=== PATIENT | male | born 1980 | race Caucasian/White ===

== ENCOUNTER → 2016-09-24 | Outpatient (CLI) | payer MEDICARE, OTHER ==
[2016-09-24 07:44] LABS: Blood Urea Nitrogen 12 mg/dL (9-20); Non-African American GFR(MDRD) >60 (>60 ml/min/1.73 sqM)
--- NOTE | 2016-09-24 16:08 | MR ---
EXAMINATION TYPE: MR lumbar spine wo/w con DATE OF EXAM: 09/24/2016 8:55 AM COMPARISON: NONE HISTORY: 36-year-old male spondylosis w/myelopathy lsp Technique: Multiplanar, multisequence images of the lumbar spine were obtained before and after admin istration of 20 mL intravenous MultiHance gadolinium contrast. FINDINGS: Vertebral body heights are preserved and alignment is maintained. Scattered small Schmorl's nodes in the upper and mid lumbar spine. No suspicious bone marrow replacement. Conus medullaris is normal. Very early degenerative changes within the intervertebral disks upper to mid lumbar spine with very m inimal desiccation and disc height loss particularly at T12-L3 levels. Minimal disc bulging L1-L2 and L2-L3. At T12-L1, no spinal canal or neuroforaminal stenosis. At L1-L2, minimal disc bulge without canal or foraminal stenosis. L2-L3, minimal disc bulge without canal or foraminal stenosis. At L3-L4, no spinal canal or foraminal stenosis. At L4-L5, the spinal canal or neuroforaminal stenosis. At L5-S1, no spinal canal or neuroforaminal stenosis. No abnormal enhancement within the spinal canal. No prevertebral or paravertebral soft tissue abnormality. IMPRESSION: 1. Very early degenerative changes of the intervertebral discs especially in the upper to mid lumbar spine. 2. Scattered small chronic endplate Schmorl's nodes. 3. No significant spinal canal or neuroforaminal stenosis.
== END | disposition home or self-care (01) ==
LOC: RADMRIMAIN 07:14
PROVIDERS: ATTEND Family Medicine
DX: M47.816 Spondylosis without myelopathy or radiculopathy, lumbar region (principal); M51.46 Schmorl's nodes, lumbar region; M47.16 Other spondylosis with myelopathy, lumbar region
CPT/HCPCS: 82565; 84520; 72158; 36415; A9577

== ENCOUNTER → 2016-12-25 | Outpatient (CLI) | payer MEDICARE, OTHER ==
--- NOTE | 2016-12-25 20:56 | MR ---
EXAMINATION TYPE: MR shoulder RT wo con DATE OF EXAM: 12/25/2016 COMPARISON: None. HISTORY: Rt shoulder pain x 2 months, no trauma; xrays on pacs. Rotator cuff impingement per order. TECHNIQUE: Multiplanar, multisequence imaging of the right shoulder is performed without contrast. FINDINGS: Rotator Cuff: There is increased signal in the supraspinatus and infraspinatus tendons below level of the acromion. No suspicious tear is present. Rotator cuff muscle bulk is preserved. Subscapularis te ndon appears completely torn with increased signal and thickening proximally identified as some retra ction is felt present. Acromioclavicular Joint: Mild capsular hypertrophy is seen. Inferior fat plane is maintained. Distal acromion morphology is unremarkable. Glenohumeral Joint: There is moderate glenohumeral joint effusion. Labrum: The labrum appears grossly intact given limitation of non-arthrogram study. Biceps Tendon: The long head of biceps is in normal location within bicipital groove. Bone marrow signal: There is serpiginous low T1 with adjacent T2 hyperintense signal consistent with avascular necrosis involving the superior medial humeral head. Inferior to this there is additional a manolo of linear T1 signal seen on parasagittal image 15 and paracoronal image 17 suspicious for nondisp laced linear fracture. There is marked heterogeneous T2 signal consistent with significant bone marro w edema or osseous contusion injury involving entire humeral head extending through the proximal meta physis. Other: No additional significant abnormality is appreciated. IMPRESSION: 1. Osteonecrosis involving superior medial humeral head. 2. There appears also to be nondisplaced linear fracture through the humeral head with marked surroun ding osseous contusion or bone marrow edema, clinical correlation for recent trauma advised. 3. Subscapularis tendon appears discontinuous, full-thickness retracted tear is suspected. No biceps tendon dislocation noted. 4. Moderate glenohumeral joint effusion. Orthopedic referral advised.
== END | disposition home or self-care (01) ==
LOC: RADMRIMAIN 15:01
PROVIDERS: ATTEND Family Medicine
DX: S42.301A Unspecified fracture of shaft of humerus, right arm, initial encounter for closed fracture (principal); S46.811A Strain of other muscles, fascia and tendons at shoulder and upper arm level, right arm, initial encounter; M25.411 Effusion, right shoulder; M87.811 Other osteonecrosis, right shoulder

== ENCOUNTER → 2017-11-10 | Outpatient (CLI) | payer MEDICARE, OTHER ==
[2017-11-10 15:55] LABS: HCT 45.3 % (39.0-53.0); HGB 14.7 gm/dL (13.0-17.5); MCH 29.1 pg (25.0-35.0); MCHC 32.5 g/dL (31.0-37.0); MCV 89.4 fL (80.0-100.0); Platelet Count 209 k/uL (150-450); RBC 5.07 m/uL (4.30-5.90); RDW 13.4 % (11.5-15.5); WBC 8.6 k/uL (3.8-10.6)
[2017-11-10 15:59] LABS: Partial Thromboplastin Time 23.2 sec (22.0-30.0); Prothrombin Time 9.6 sec (9.0-12.0)
[2017-11-10 16:03] LABS: ALT 92 U/L (21-72); AST 60 U/L (17-59); Albumin 4.7 g/dL (3.5-5.0); Alkaline Phosphatase 82 U/L (38-126); Anion Gap 15 mmol/L; Blood Urea Nitrogen 13 mg/dL (9-20); Calcium 10.5 mg/dL (8.4-10.2); Carbon Dioxide 26 mmol/L (22-30); Chloride 103 mmol/L (98-107); Glucose 117 mg/dL (74-99); Potassium 4.6 mmol/L (3.5-5.1); Sodium 144 mmol/L (137-145); Total Bilirubin 0.4 mg/dL (0.2-1.3); Total Protein 7.7 g/dL (6.3-8.2)
== END | disposition home or self-care (01) ==
LOC: LABPAT 11-03 09:49
PROVIDERS: ATTEND Orthopaedic Surgery
DX: Z01.812 Encounter for preprocedural laboratory examination (principal)
CPT/HCPCS: 80053; 85027; 85610; 85730; 86850; 86900; 86901; 87070; 93005

== ENCOUNTER → 2017-11-14 | Outpatient (CLI) | payer MEDICARE, OTHER ==
[2017-11-14 16:01] LABS: Appearance,Urine Clear (Clear); Bacteria,Urine Rare /hpf; Bilirubin,Urine Negative (Negative); Blood,Urine Trace (Negative); Color,Urine Yellow; Glucose,Urine (UA) Trace (Negative); Ketones,Urine Negative (Negative); Leukocyte Esterase,Urine Negative (Negative); Mucus,Urine Rare /hpf; Nitrite,Urine Negative (Negative); PH, Urine 5.5 (5.0-8.0); Protein,Urine Negative (Negative); RBC,Urine 2 /hpf (0-5); Specific Gravity,Urine 1.027 (1.001-1.035); Squamous Epithelial Cell,Urine <1 /hpf (0-4); Urobilinogen,Urine <2.0 mg/dL (<2.0); WBC,Urine 1 /hpf (0-5)
== END | disposition home or self-care (01) ==
LOC: LABPAT 15:43
PROVIDERS: ATTEND Orthopaedic Surgery
DX: Z01.812 Encounter for preprocedural laboratory examination (principal)
CPT/HCPCS: 81001

== ENCOUNTER 2017-11-18 05:47 | Inpatient (IN) | payer MEDICARE, OTHER ==
[~2017-11-18 05:47] MED LIST: ACETAMINOPHEN TAB 500 MG TAB PO ONE; DEXAMETHASONE SOD PHOSPHATE 10 MG/ML 1 ML VIAL IV ONE; LACTATED RINGERS 1,000 ML IV SCH; MELOXICAM 7.5 MG TAB PO ONE; MIDAZOLAM 2 MG/2 ML VIAL IV PRN; ONDANSETRON ODT 4 MG TAB PO ONE; SCOPOLAMINE 1.5MG/72HR PATCH TRANSDERM ONE; TRANEXAMIC ACID 1,000 MG in SODIUM CHLORIDE 0.9% 50 ML IVPB ONE; ceFAZolin IN SWFI 2 GM/20 ML SYRINGE IVP ONE; fentaNYL (PF) 50 MCG/ML 2 ML AMP IV PRN
[2017-11-18 06:16] VITALS: RESP 16
[2017-11-18] MEDS ORDERED: LIDOCAINE 1% 20 ML VIAL (10MG/ML) FOR IV START INTRADERMA ONE (06:31)
[2017-11-18] MEDS ORDERED: MAGNESIUM HYDROXIDE 2,400 MG/10 ML CUP PO PRN (06:55)
[2017-11-18] MEDS ORDERED: ONDANSETRON 4 MG/2 ML VIAL IVP PRN (06:55)
[2017-11-18] MEDS ORDERED: DIAZEPAM 5 MG TAB PO PRN (06:55)
[2017-11-18] MEDS ORDERED: MORPHINE SULFATE 4 MG/ML SYRINGE IVP PRN ×3 (06:55)
[2017-11-18] MEDS ORDERED: hydrOXYzine PAMOATE 25 MG CAP PO PRN (06:55)
[2017-11-18] MEDS ORDERED: NALOXONE 0.4 MG/ML 1 ML VIAL IV PRN (06:55)
[2017-11-18] MEDS ORDERED: HYDROcodone/APAP 5-325MG 1 EACH TAB PO PRN ×2 (06:55)
[2017-11-18] MEDS ORDERED: SODIUM CHLORIDE 0.9% IRRIG 1,000 ML BTL IRRIGATION ONE (07:00)
[2017-11-18] MEDS ORDERED: MIDAZOLAM 2 MG/2 ML VIAL ONE (07:00)
[2017-11-18] MEDS ORDERED: PROPOFOL 10 MG/ML 20 ML VIAL IV ONE (07:00)
[2017-11-18] MEDS ORDERED: fentaNYL (PF) 50 MCG/ML 2 ML AMP ONE (07:00)
[2017-11-18] MEDS ORDERED: HEPARIN SODIUM,PORCINE 10,000 UNIT/ML 1 ML VIAL ONE (07:00)
[2017-11-18] MEDS ORDERED: SODIUM CHLORIDE 0.9% 100 ML BAG ONE (07:00)
[2017-11-18] MEDS ORDERED: TRANEXAMIC ACID 1,000 MG/10 ML VIAL ONE (07:00)
[2017-11-18] MEDS: ROPIVACAINE 246.25 MG, EPINEPHrine 0.5 MG, KETOROLAC 30 MG, cloNIDine HCL/PF 80 MCG, WA... MISCELLANE ONE ×10 (07:36→08:19)
[2017-11-18] MEDS ORDERED: ceFAZolin 3,000 MG in SODIUM CHLORIDE 0.9% IRRIGATIO 3,000 ML IRRIGATION ONE (07:37)
--- NOTE | 2017-11-18 08:45 | P.OP ---
Date of Procedure: 11/18/17 Preoperative Diagnosis: Severe osteoarthritis left hip Postoperative Diagnosis: Severe osteoarthritis left hip Procedure(s) Performed: Left total hip arthroplasty with a direct anterior approach Implants: Calderon and nephew Polarstem size 2 standard Calderon [employer] Nephew R3, 3 hole acetabular shell, 52 mm Claderon & Nephew reflection 6.5 mm cancellus screw, 20 mm 2 Calderon [employer] Nephew R3, XLPE 20 acetabular liner Calderon [employer] Nephew Oxinium femoral head 36 m, +4 All components were press-fit. The articulation is Oxinium on polyethylene. Anesthesia: spinal Surgeon: Al Parekh Grounds Caretaker #1: Nancy Zavala Estimated Blood Loss (ml): 250 (131 mL returned with Cell Saver) Pathology: other (Femoral head) Condition: stable Disposition: PACU Indications for Procedure: After failure of conservative treatment we discussed the surgical and nonsurgical treatment options at length. Patient wishes to proceed with a total hip arthroplasty with a direct anterior approach. Complications specific to this procedure were discussed at length, including but not limited to infection, leg length discrepancy, dislocation, and nerve injury. Patient is aware of all these complications and informed consent was obtained Operative Findings: The operative findings are consistent with severe osteoarthritis of the left hip Description of Procedure: Patient was seen and evaluated in the preoperative area, consent was reviewed, and the surgical site was marked with a skin marker. Patient was then brought to the operating room and given prophylactic antibiotics intravenously. 1 g of Tranexamic acid was also given. A spinal anesthetic was administered by the anesthesia department. The patient was then placed on the Durand table with the bony prominences well-padded. The hip area was then prepped and draped in usual sterile fashion. A universal timeout was then performed, which confirmed the patient's name, surgical site, ALLERGIES, and procedure being performed. Next the incision site was located at 1 cm distal and 1 cm lateral to the anterior superior iliac spine. The skin and subcutaneous tissues were sharply incised. Incision was carefully dissected down to the fascia overlying the tensor fascia pierce muscle. This fascia was then incised in line with the incision. Next, using blunt finger dissection, the tensor fascia pierce muscle was dissected off its investing fascia. The muscle was then carefully retracted laterally with a cobra retractor over the lateral neck of the femur. Next, the circumflex vessels were identified and cauterized using the AquaMantis device. The anterior hip capsule was then exposed. The capsule was then opened and an inverted T fashion. Cobra retractors were then placed intracapsularly. The proximal femur was then visualized. The femoral neck was then osteotomized appropriate level above the lesser trochanter. Small amount of traction was placed with the Durand table. A small wedge of bone was then removed from the remaining femoral head. Next, using a corkscrew femoral head was easily removed from the acetabulum. On gross visual inspection, the femoral head had complete loss of articular cartilage in multiple periarticular osteophytes. Attention was then turned to the acetabulum. the acetabulum was exposed and any remaining labrum was excised. Sequential reaming of the acetabulum was performed using fluoroscopic guidance. When the appropriate size was reached, a trial was then placed. The position and fit of the trial was checked with fluoroscopy. The trial was then removed. Then, using fluoroscopic guidance, the final implant was impacted at 20 of anteversion and 40 of abduction, and fully seated in the acetabulum. 2 screws were then placed in the acetabulum. Again fluoroscopy was used to check position of the screws. Next, the liner was then impacted, with a 20 elevated liner located in the anterior superior quadrant. Component locking was confirmed. Attention was then directed to the femur. With the aid of the Durand table, the femur was externally rotated to approximately 130, extended, and abducted under the opposite leg. A side hook was then placed under the proximal femur, and the side hook elevator was used to elevate the proximal femur. Retractors were then placed. A capsular release was performed, as well as a release of the conjoined tendon, which afforded excellent visualization of the proximal femur. Next, a box osteotome was used to lateralize the proximal femur. A baseball hand sewer was then used to locate the femoral canal. Sequential broaching was then performed with appropriate size which afforded excellent fixation in the proximal femur. A trial was then placed with appropriate head and neck, and the hip was gently reduced with the aid of the Durand table. Fluoroscopy was then used to check position of the components, as well as to ensure equal leg lengths. The hip was then gently dislocated and the trials were then removed. Final implants were then impacted and the hip was again reduced. Final fluoroscopic x-rays confirmed that the components were in anatomic position, as well as equal leg lengths. The hip was also taken through range of motion, and found to be stable. The hip was then copiously irrigated with antibiotic solution with pulsatile lavage. The hip was then irrigated with Irrisept solution. The soft tissues were then injected with a ropivacaine solution, which consisted of 246.25 mg of ropivacaine, 0.5 mg of epinephrine, 30 mg of Toradol, 80 g of clonidine, and 48.45 mL of sterile water, for a total of 100 mL of fluid injected. A second dose of 1 g of Tranexamic acid was also given. the fascia was then closed with 2-0 strata fix suture. The subcutaneous tissue was closed with 3-0 Vicryl. The subcuticular tissue was closed with 3-0 strata fix suture. The skin was then closed with Dermabond glue and a sterile silver dressing. The patient was then transferred to the recovery room in stable condition. The clinical education assistant CHIOMA Lindsey was required due to the complexity of surgery, and the need for skilled cardiovascular surgical tech for positioning, draping, exposure, retraction, and closure of the wound.
[2017-11-18] MEDS ORDERED: SODIUM CHLORIDE 0.9% 1,000 ML IV ONE (09:06)
--- NOTE | 2017-11-18 09:32 | XR ---
EXAMINATION TYPE: XR Hip Limited LT DATE OF EXAM: 11/18/2017 COMPARISON: NONE HISTORY: 37-year-old male status post hip surgery, assess surgical alignment TECHNIQUE: AP portable view FINDINGS: Image shows placement of left hip total arthroplasty. Both acetabular cup and femoral short stemmed c omponents of the prosthesis appear well seated without periprosthetic fracture. Alignment grossly ghassan tomic. Soft tissue air relating to recent operation. IMPRESSION: Uncomplicated postoperative appearance left total hip arthroplasty.
--- NOTE | 2017-11-18 10:19 | FL ---
EXAMINATION TYPE: FL guidance operating room, XR Hip Limited LT DATE OF EXAM: 11/18/2017 COMPARISON: NONE HISTORY: 37 year-old male left hip arthroplasty FINDINGS: 2 intraoperative fluoroscopic views during left hip replacement. FLUOROSCOPY Fluoroscopy time of 51 seconds was used during anterior left thoracoplasty. 2 image/s document/s the procedure. IMPRESSION: Intraoperative fluoroscopy during left hip total arthroplasty as above.
[2017-11-18] MEDS: SODIUM CHLORIDE 0.9% 1,000 ML IV SCH ×2 (10:33→21:09)
[2017-11-18] MEDS: ASPIRIN 325 MG TAB PO SCH ×2 (10:39→21:08)
[2017-11-18] MEDS: DIAZEPAM 5 MG TAB PO PRN ×2 (10:52→21:08)
[2017-11-18 11:10] VITALS: BMI 36.5
[2017-11-18] MEDS ORDERED: PRAZOSIN 1 MG CAP PO SCH ×2 (12:00→14:34)
[2017-11-18] MEDS ORDERED: FOLIC ACID 1 MG TAB PO SCH (12:00)
[2017-11-18] MEDS ORDERED: NON-FORMULARY DRUG (Dextroamphetamine/Amphetamine [Adderall] 30 MG) PO SCH (12:00)
[2017-11-18] MEDS: ARIPiprazole 10 MG TAB PO SCH (14:31)
[2017-11-18] MEDS: NIACIN TR 250 MG CAPSULE.ER PO SCH (14:32)
[2017-11-18] MEDS: SERTRALINE 100 MG TAB PO SCH (14:32)
[2017-11-18] MEDS ORDERED: KETOROLAC 60 MG/2 ML VIAL IM STA (14:50)
[2017-11-18] MEDS: oxyCODONE-APAP 10-325MG 1 EACH TAB PO PRN ×2 (16:06→21:07)
[2017-11-18] MEDS: ceFAZolin IN SWFI 2 GM/20 ML SYRINGE IVP SCH ×2 (16:13→23:47)
[2017-11-18] MEDS: KETOROLAC 30 MG/ML 1 ML VIAL IVP SCH ×2 (18:06→23:45)
[2017-11-18] MEDS ORDERED: SENNOSIDES-DOCUSATE SODIUM 1 EACH TAB PO SCH (21:00)
[2017-11-18] MEDS: FAMOTIDINE 20 MG TAB PO SCH (21:24)
--- NOTE | 2017-11-18 22:57 | HP ---
HISTORY AND PHYSICAL ADDENDUM: DATE OF SERVICE: 11/18/2017 FAMILY HISTORY: Reviewed, noncontributory to presentation. SOCIAL HISTORY: The patient is on disability, smokes half a pack a day for 20 years. Alcohol rarely. Denies use of any other recreational drugs. MMODL / IJN: [id number] /
[2017-11-19] MEDS: oxyCODONE-APAP 10-325MG 1 EACH TAB PO PRN ×2 (02:11→07:11)
[2017-11-19] MEDS: KETOROLAC 30 MG/ML 1 ML VIAL IVP SCH (05:10)
[2017-11-19] MEDS: NICOTINE 14MG/24HR PATCH TRANSDERM SCH ×2 (05:11→08:45)
[2017-11-19 07:32] LABS: Basophils # (A) 0.1 k/uL (0-0.2); Basophils % (A) 1 %; Eosinophils # (A) 0.1 k/uL (0-0.7); Eosinophils % (A) 1 %; HCT 35.5 % (39.0-53.0); Lymphocytes # (A) 3.4 k/uL (1.0-4.8); Lymphocytes % (A) 33 %; MCH 29.3 pg (25.0-35.0); MCHC 32.8 g/dL (31.0-37.0); MCV 89.4 fL (80.0-100.0); Mean Platelet Volume 7.3; Monocytes # (A) 1.1 k/uL (0-1.0); Monocytes % (A) 11 %; Neutrophils # (A) 5.4 k/uL (1.3-7.7); Neutrophils % (A) 52 %; Platelet Count 193 k/uL (150-450); RBC 3.97 m/uL (4.30-5.90); WBC 10.3 k/uL (3.8-10.6)
[2017-11-19 07:38] LABS: HGB 11.6 gm/dL (13.0-17.5)
--- NOTE | 2017-11-19 08:10 | P.DS ---
Providers Date of admission: 11/18/17 05:47 Expected date of discharge: 11/19/17 Attending physician: Al Parekh Consults: 11/18/17 06:55 Consult Physician Routine Consulting Provider: Wei Nielsen Consult Reason/Comments: medical management Do you want consulting provider notified?: Yes 11/18/17 10:01 Consult Physician Routine Consulting Provider: Kyler Alvarado Consult Reason/Comments: Medical Management Do you want consulting provider notified?: Yes Primary care physician: Wei Nielsen - Discharge Diagnosis(es) (1) Status post total hip replacement, left Current Visit: Yes Status: Acute (2) Avascular necrosis of bone of left hip Current Visit: Yes Status: Acute Hospital Course: This is a 37-year-old male with known history of degenerative arthritis of the left hip. The patient presents for evaluation. After discussion and consideration patient elects to proceed with total hip arthroplasty. The patient is seen preoperatively by his primary care physician and cleared for surgery. Patient is admitted to [facility] on 11/18/2017 for total hip arthroplasty. The procedures performed without complication or sequelae. The patient is doing well postoperatively. Labs and vital signs are stable on day of discharge. On day of discharge patient's hip incision is healing well. There is minimal erythema. There is no drainage noted at this time. There is minimal soft tissue swelling to the hip and thigh. Patient has full foot and ankle motion without difficulty or pain. Neurovascular status to the left lower extremity is intact. Patient is discharged to home in good condition. Pertinent Studies: Laboratory Tests 11/19/17 07:01 WBC 10.3 RBC 3.97 L Hgb 11.6 L D Hct 35.5 L Monocytes # 1.1 H Patient Condition at Discharge: Stable Plan - Discharge Summary Discharge Rx Participant: No New Discharge Prescriptions: New Aspirin 325 mg PO BID #60 tab Sennosides [Senokot] 1 tab PO BID #60 tablet No Action ARIPiprazole [Abilify] 10 mg PO QAM Cholecalciferol (Vitamin D3) [Vitamin D3] 2,000 unit PO DAILY Dextroamphetamine/Amphetamine [Adderall] 30 mg PO QAM Folic Acid 1 mg PO DAILY Loratadine 10 mg PO DAILY Niacin 100 mg PO DAILY [place]-3 Fatty Acids/Fish Oil [Fish Oil 1,000 mg Softgel] 1 cap PO DAILY oxyCODONE-APAP 10-325MG [Percocet 10-325 mg] 1 tab PO Q6H PRN PRN Reason: Pain Prazosin [Minipress] 2 mg PO QAM Ranitidine HCl [Zantac] 150 mg PO BID Sertraline [Zoloft] 200 mg PO QAM SUMAtriptan SUCCINATE [Imitrex] 25 mg PO DAILY PRN PRN Reason: MIGRAINES Zolpidem [Ambien] 10 mg PO HS PRN PRN Reason: Insomnia Pseudoephedrine 12Hr [Sudafed 12 Hour] 120 mg PO DAILY Lisinopril [Zestril] 10 mg PO QAM Discharge Medication List ARIPiprazole [Abilify] 10 mg PO QAM 11/11/17 [History] Cholecalciferol (Vitamin D3) [Vitamin D3] 2,000 unit PO DAILY 11/11/17 [History] Dextroamphetamine/Amphetamine [Adderall] 30 mg PO QAM 11/11/17 [History] Folic Acid 1 mg PO DAILY 11/11/17 [History] Lisinopril [Zestril] 10 mg PO QAM 11/11/17 [History] Loratadine 10 mg PO DAILY 11/11/17 [History] Niacin 100 mg PO DAILY 11/11/17 [History] [place]-3 Fatty Acids/Fish Oil [Fish Oil 1,000 mg Softgel] 1 cap PO DAILY [History] Prazosin [Minipress] 2 mg PO QAM 11/11/17 [History] Pseudoephedrine 12Hr [Sudafed 12 Hour] 120 mg PO DAILY 11/11/17 [History] Ranitidine HCl [Zantac] 150 mg PO BID 11/11/17 [History] SUMAtriptan SUCCINATE [Imitrex] 25 mg PO DAILY PRN 11/11/17 [History] Sertraline [Zoloft] 200 mg PO QAM 11/11/17 [History] Zolpidem [Ambien] 10 mg PO HS PRN 11/11/17 [History] oxyCODONE-APAP 10-325MG [Percocet 10-325 mg] 1 tab PO Q6H PRN 11/11/17 [History] Aspirin 325 mg PO BID #60 tab 11/18/17 [Rx] Sennosides [Senokot] 1 tab PO BID #60 tablet 11/18/17 [Rx] Follow up Appointment(s)/Referral(s): [facility], [NON-STAFF] - Al Parekh DO [Doctor of Osteopathic Medicine] - 2 Weeks Patient Instructions/Handouts: Anterior Hip Replacement (DC) Activity/Diet/Wound Care/Special Instructions: Walker- [facility] -[phone]- will deliver to bedside prior to discharge Weightbearing as tolerated with walker Leave dressing intact. Dressing may be removed by home care nurse in 10 days. May shower with dressing on. Follow-up with [facility] in 2 weeks, please call with any questions or concerns [phone] Discharge Disposition: HOME WITH HOME HEALTH SERVICES
[2017-11-19 08:27] VITALS: BP 159/95; PULSE 74; TEMP 97.8
[2017-11-19] MEDS: NIACIN TR 250 MG CAPSULE.ER PO SCH (08:44)
[2017-11-19] MEDS: FAMOTIDINE 20 MG TAB PO SCH (08:44)
[2017-11-19] MEDS: ASPIRIN 325 MG TAB PO SCH (08:44)
[2017-11-19] MEDS: ARIPiprazole 10 MG TAB PO SCH (08:44)
[2017-11-19] MEDS: SERTRALINE 100 MG TAB PO SCH (08:45)
[2017-11-19] MEDS ORDERED: LISINOPRIL 10 MG TAB PO SCH (09:00)
[2017-11-19] MEDS ORDERED: LORATADINE 10 MG TAB PO SCH (09:00)
[2017-11-19] MEDS ORDERED: MELOXICAM 7.5 MG TAB PO SCH (09:00)
[2017-11-19] MEDS ORDERED: PSEUDOEPHEDRINE 12HR 120 MG TABLET.ER PO SCH (09:00)
== END 2017-11-19 09:45 | disposition home health service (06) | DRG 470 ==
LOC: 2ORMAIN 05:47 → 3SUR 08:50
PROVIDERS: ADMIT Orthopaedic Surgery; ATTEND Orthopaedic Surgery
PROC: 30233N0 Transfusion of Autologous Red Blood Cells into Peripheral Vein, Percutaneous Approach (ICD-10-PCS; 2017-11-18)
PROC: 0SRB06A Replacement of Left Hip Joint with Oxidized Zirconium on Polyethylene Synthetic Substitute, Uncemented, Open Approach (ICD-10-PCS; principal; 2017-11-18 07:00)
DX: M16.12 Unilateral primary osteoarthritis, left hip (principal); M87.052 Idiopathic aseptic necrosis of left femur; M47.10 Other spondylosis with myelopathy, site unspecified; M25.752 Osteophyte, left hip; F17.210 Nicotine dependence, cigarettes, uncomplicated; I10 Essential (primary) hypertension; E78.5 Hyperlipidemia, unspecified; H91.90 Unspecified hearing loss, unspecified ear; K76.9 Liver disease, unspecified; F32.9 Major depressive disorder, single episode, unspecified; J44.9 Chronic obstructive pulmonary disease, unspecified; G47.00 Insomnia, unspecified; E78.00 Pure hypercholesterolemia, unspecified; K21.9 Gastro-esophageal reflux disease without esophagitis; M06.9 Rheumatoid arthritis, unspecified; F43.10 Post-traumatic stress disorder, unspecified; Z88.6 Allergy status to analgesic agent; Z83.3 Family history of diabetes mellitus; Z79.899 Other long term (current) drug therapy; Z82.49 Family history of ischemic heart disease and other diseases of the circulatory system; Z79.891 Long term (current) use of opiate analgesic; Z87.01 Personal history of pneumonia (recurrent); Z86.69 Personal history of other diseases of the nervous system and sense organs
CPT/HCPCS: 73501; 85025; 86850; 86891; 86900; 86901; 88305; 88311

== ENCOUNTER 2018-08-22 08:34 | Inpatient (IN) | payer MEDICARE, OTHER ==
[2018-08-22] MEDS ORDERED: SODIUM CHLORIDE 0.9% 1,000 ML IV STA ×2 (08:37)
[2018-08-22] MEDS ORDERED: ASPIRIN 81 MG PO STA (08:37)
--- NOTE | 2018-08-22 08:44 | ED ---
General Adult HPI - General Stated complaint: WEAKNESS Time Seen by Provider: 08/22/18 08:34 Source: RN notes reviewed - History of Present Illness Initial comments: This is a 38-year-old male who presents emergency Department with a past medical history significant for hypertension. Patient states the ambulance was called today because he was having chest pains or shortness of breath and is significant other noted that he was a little bit confused. She also noted that the last couple of days he was drinking a lot of Gatorade. Patient states she has not been nauseated or had any vomiting. Patient denies any recent fever chills per patient denies any cough. Patient denies any abdominal pain. Patient denies any recent diarrhea. Patient has no history of diabetes. EMS noted that his sugar was over 500. Patient denies headache patient denies numbness weakness. Patient denies lightheadedness dizziness or near syncopal episode. - Related Data Home Medications Medication Instructions Recorded Confirmed Cholecalciferol (Vitamin D3) 2,000 unit PO DAILY 11/11/17 08/22/18 [Vitamin D3] Dextroamphetamine/Amphetamine 30 mg PO QAM 11/11/17 11/18/17 [Adderall] Folic Acid 1 mg PO DAILY 11/11/17 08/22/18 Lisinopril [Zestril] 10 mg PO QAM 11/11/17 08/22/18 Loratadine 10 mg PO DAILY 11/11/17 11/18/17 [place]-3 Fatty Acids/Fish Oil [Fish 1 cap PO DAILY 11/11/17 11/18/17 Oil 1,000 mg Softgel] Pseudoephedrine 12Hr [Sudafed 12 120 mg PO DAILY 11/11/17 11/18/17 Hour] Ranitidine HCl [Zantac] 150 mg PO BID 11/11/17 11/18/17 SUMAtriptan SUCCINATE [Imitrex] 25 mg PO DAILY PRN 11/11/17 11/18/17 Sertraline [Zoloft] 200 mg PO QAM 11/11/17 08/22/18 Zolpidem [Ambien] 10 mg PO HS PRN 11/11/17 11/18/17 oxyCODONE-APAP 10-325MG [Percocet 1 tab PO Q6H PRN 11/11/17 11/18/17 10-325 mg] ARIPiprazole [Abilify] 10 mg PO DAILY 08/22/18 08/22/18 Niacin 1,000 mg PO HS 08/22/18 08/22/18 Prazosin HCl 4 mg PO HS 08/22/18 08/22/18 Previous Rx's Medication Instructions Recorded Aspirin 325 mg PO BID #60 tab 11/18/17 Sennosides [Senokot] 1 tab PO BID #60 tablet 11/18/17 Allergies Allergy/AdvReac Type Severity Reaction Status Date / Time morphine Allergy HEADACHE, Verified 08/22/18 09:23 AGITATION Review of Systems ROS Statement: Those systems with pertinent positive or pertinent negative responses have been documented in the HPI. ROS Other: All systems not noted in ROS Statement are negative. Past Medical History Past Medical History: GERD/Reflux, Hypertension, Osteoarthritis (OA), Rheumatoid Arthritis (RA), Sleep Apnea/CPAP/BIPAP Additional Past Medical History / Comment(s): AVASCULAR NECROSIS. MIGRAINES. ALLERGIES. DOES NOT USE CPAP. History of Any Multi-Drug Resistant Organisms: None Reported Past Surgical History: Back Surgery, Joint Replacement, Orthopedic Surgery Additional Past Surgical History / Comment(s): RIGHT ROTATOR CUFF REPAIR. TOTAL JOINT RIGHT SHOULDER @ [facility]. LEFT KNEE ARTHROSCOPY. SINUS. C6-7, ANTERIOR TOTAL LEFT HIP ARTHROPLASTY, Past Anesthesia/Blood Transfusion Reactions: No Reported Reaction Past Psychological History: ADD/ADHD, Anxiety, Depression, PTSD Smoking Status: Current every day smoker Past Alcohol Use History: Rare Additional Past Alcohol Use History / Comment(s): 1/2 PPD, SMOKED 20 YEARS. Past Drug Use History: None Reported - Past Family History Mother Family Medical History: No Reported History General Exam - General Exam Comments Initial Comments: GENERAL: Patient is well-developed and well-nourished. Patient is nontoxic and well- hydrated and is in mild distress. ENT: Neck is soft and supple. No significant lymphadenopathy is noted. Oropharynx is clear. Dry mucous membranes Neck has full range of motion without eliciting any pain. EYES: The sclera were anicteric and conjunctiva were pink and moist. Extraocular movements were intact and pupils were equal round and reactive to light. Eyelids were unremarkable. PULMONARY: Unlabored respirations. Good breath sounds bilaterally. No audible rales rhonchi or wheezing was noted. CARDIOVASCULAR: There is a regular rate and rhythm without any murmurs gallops or rubs. ABDOMEN: Soft and nontender with normal bowel sounds. SKIN: Skin is clear with no lesions or rashes and otherwise unremarkable. NEUROLOGIC: Patient is alert and oriented x3. Cranial nerves II through XII are grossly intact. Motor and sensory are also intact. Normal speech, volume and content. Symmetrical smile. MUSCULOSKELETAL: Normal extremities with adequate strength and full range of motion. No lower extremity swelling or edema. No calf tenderness. LYMPHATICS: No significant lymphadenopathy is noted PSYCHIATRIC: Normal psychiatric evaluation. Course Vital Signs 08/22/18 08:35 Temperature 97.0 F L Pulse Rate 117 H Respiratory 32 H Rate Blood Pressure 127/64 Medical Decision Making - Medical Decision Making EKG shows sinus tachycardia at 118 bpm OR interval 114 QRS is under QT interval 354 QTC is 496. Patient's EKG shows no ST segment elevation or depression or T wave abnormalities are noted when compared to an old EKG Chest x-ray shows no acute abnormality. Patient appears to have new-onset diabetes. Patient sugars over thousand patient's potassium 6.7 patient's sodium is 119. Patient's creatinine is elevated. Patient appears to be dehydrated. I spoke with Dr. Alvarado agreed to admit the patient admitted the patient wrote admitting orders. I put the patient DKA protocol I spoke with Dr. Samuels and he agreed to accept the patient. - Lab Data Result diagrams: 08/22/18 08:48 08/22/18 08:48 Lab Results 08/22/18 08/22/18 08/22/18 Range/Units 08:48 08:48 08:48 WBC 23.5 H (3.8-10.6) k/uL RBC 4.95 (4.30-5.90) m/uL Hgb 14.7 (13.0-17.5) gm/dL Hct 49.5 (39.0-53.0) % MCV 99.8 (80.0-100.0) fL MCH 29.7 (25.0-35.0) pg MCHC 29.8 L (31.0-37.0) g/dL RDW 13.3 (11.5-15.5) % Plt Count 285 (150-450) k/uL Neutrophils % (Manual) 77 % Band Neutrophils % 2 % Lymphocytes % (Manual) 13 % Monocytes % (Manual) 8 % Neutrophils # (Manual) 18.50 H (1.3-7.7) k/uL Lymphocytes # (Manual) 3.06 (1.0-4.8) k/uL Monocytes # (Manual) 1.88 H (0-1.0) k/uL Nucleated RBCs 0 (0-0) /100 WBC Manual Slide Review Performed Hypochromasia Marked Stomatocytes Present PT (9.0-12.0) sec INR (<1.2) APTT (22.0-30.0) sec Sample Site ABG pH (7.35-7.45) ABG pCO2 (35-45) mmHg ABG pO2 (83-108) mmHg ABG HCO3 (21-25) mmol/L ABG O2 Saturation (94-97) % ABG Base Excess mmol/L FiO2 % Sodium 119 L* (137-145) mmol/L Potassium 6.7 H* (3.5-5.1) mmol/L Chloride 81 L (98-107) mmol/L Carbon Dioxide <5 L* (22-30) mmol/L Anion Gap mmol/L BUN 36 H (9-20) mg/dL Creatinine 3.49 H (0.66-1.25) mg/dL Est GFR (CKD-EPI)AfAm 24 (>60 ml/min/1.73 sqM) Est GFR (CKD-EPI)NonAf 21 (>60 ml/min/1.73 sqM) Glucose 1223 H* (74-99) mg/dL POC Glucose (mg/dL) (75-99) mg/dL POC Glu Advertising Account Manager ID Calcium 8.5 (8.4-10.2) mg/dL Magnesium 2.2 (1.6-2.3) mg/dL Total Bilirubin 0.9 (0.2-1.3) mg/dL AST 55 (17-59) U/L ALT 61 (21-72) U/L Alkaline Phosphatase 95 (38-126) U/L Total Creatine Kinase 79 (55-170) U/L CK-MB (CK-2) 1.8 (0.0-2.4) ng/mL CK-MB (CK-2) Rel Index 2.3 Troponin I 0.013 (0.000-0.034) ng/mL Total Protein 6.8 (6.3-8.2) g/dL Albumin 3.9 (3.5-5.0) g/dL Acetone, Qual Positive (Negative) 08/22/18 08/22/18 08/22/18 Range/Units 08:48 09:12 11:26 WBC (3.8-10.6) k/uL RBC (4.30-5.90) m/uL Hgb (13.0-17.5) gm/dL Hct (39.0-53.0) % MCV (80.0-100.0) fL MCH (25.0-35.0) pg MCHC (31.0-37.0) g/dL RDW (11.5-15.5) % Plt Count (150-450) k/uL Neutrophils % (Manual) % Band Neutrophils % % Lymphocytes % (Manual) % Monocytes % (Manual) % Neutrophils # (Manual) (1.3-7.7) k/uL Lymphocytes # (Manual) (1.0-4.8) k/uL Monocytes # (Manual) (0-1.0) k/uL Nucleated RBCs (0-0) /100 WBC Manual Slide Review Hypochromasia Stomatocytes PT 9.9 (9.0-12.0) sec INR 0.9 (<1.2) APTT 26.8 (22.0-30.0) sec Sample Site r rad ABG pH 7.07 L* (7.35-7.45) ABG pCO2 <15 L* (35-45) mmHg ABG pO2 103 (83-108) mmHg ABG HCO3 3 L* (21-25) mmol/L ABG O2 Saturation 96.0 (94-97) % ABG Base Excess -26.7 mmol/L FiO2 28 % Sodium (137-145) mmol/L Potassium (3.5-5.1) mmol/L Chloride (98-107) mmol/L Carbon Dioxide (22-30) mmol/L Anion Gap mmol/L BUN (9-20) mg/dL Creatinine (0.66-1.25) mg/dL Est GFR (CKD-EPI)AfAm (>60 ml/min/1.73 sqM) Est GFR (CKD-EPI)NonAf (>60 ml/min/1.73 sqM) Glucose (74-99) mg/dL POC Glucose (mg/dL) >600 H (75-99) mg/dL POC Glu Advertising Account Manager ID Tanja Miranda Calcium (8.4-10.2) mg/dL Magnesium (1.6-2.3) mg/dL Total Bilirubin (0.2-1.3) mg/dL AST (17-59) U/L ALT (21-72) U/L Alkaline Phosphatase (38-126) U/L Total Creatine Kinase (55-170) U/L CK-MB (CK-2) (0.0-2.4) ng/mL CK-MB (CK-2) Rel Index Troponin I (0.000-0.034) ng/mL Total Protein (6.3-8.2) g/dL Albumin (3.5-5.0) g/dL Acetone, Qual (Negative) Critical Care Time Critical Care Time: Yes Total Critical Care Time: 35 Disposition Clinical Impression: DKA (diabetic ketoacidoses), Renal failure Disposition: ADMITTED IP TO THIS HOSP Referrals: Wei Nielsen MD [Primary Care Provider] - 1-2 days Time of Disposition: 11:32
[2018-08-22 09:38] LABS: ALT 61 U/L (21-72); AST 55 U/L (17-59); Albumin 3.9 g/dL (3.5-5.0); Alkaline Phosphatase 95 U/L (38-126); Blood Urea Nitrogen 36 mg/dL (9-20); Calcium 8.5 mg/dL (8.4-10.2); Chloride 81 mmol/L (98-107); Magnesium 2.2 mg/dL (1.6-2.3); Total Bilirubin 0.9 mg/dL (0.2-1.3); Total Protein 6.8 g/dL (6.3-8.2)
[2018-08-22 09:43] LABS: HCT 49.5 % (39.0-53.0); HGB 14.7 gm/dL (13.0-17.5); Hypochromasia Marked; MCH 29.7 pg (25.0-35.0); MCHC 29.8 g/dL (31.0-37.0); MCV 99.8 fL (80.0-100.0); Mean Platelet Volume 9.6; Platelet Count 285 k/uL (150-450); RBC 4.95 m/uL (4.30-5.90); RDW 13.3 % (11.5-15.5); WBC 23.5 k/uL (3.8-10.6)
[2018-08-22 09:43] LABS: ABG Base Excess -26.7 mmol/L; ABG PO2 103 mmHg (83-108)
[2018-08-22 09:44] LABS: ABG HCO3 3 mmol/L (21-25); ABG PCO2 <15 mmHg (35-45); ABG PH 7.07 (7.35-7.45)
--- NOTE | 2018-08-22 09:51 | XR ---
EXAMINATION TYPE: XR chest 2V DATE OF EXAM: 08/22/2018 COMPARISON: CT cervical spine 09/06/2013 HISTORY: Chest pain TECHNIQUE: Frontal and lateral views of the chest are obtained. FINDINGS: There is no focal air space opacity, pleural effusion, or pneumothorax seen. The cardiac silhouette size is within normal limits. Right partial shoulder arthroplasty is evident. There is rodrigo dence of prior cervical fusion. This hardware appears similar to prior study of 2013. IMPRESSION: No acute cardiopulmonary process.
[2018-08-22 09:57] LABS: Potassium 6.7 mmol/L (3.5-5.1); Sodium 119 mmol/L (137-145)
[2018-08-22 09:59] LABS: Glucose 1223 mg/dL (74-99)
[2018-08-22] MEDS ORDERED: SODIUM CHLORIDE 0.9% 1,000 ML IV ONE (09:59)
[2018-08-22 10:00] LABS: Carbon Dioxide <5 mmol/L (22-30)
[2018-08-22] MEDS ORDERED: INSULIN REGULAR 100 UNIT/ML VIAL IV ONE (10:00)
[2018-08-22 10:01] LABS: Creatine Kinase MB 1.8 ng/mL (0.0-2.4)
[2018-08-22 10:02] LABS: Troponin I 0.013 ng/mL (0.000-0.034)
[2018-08-22 10:10] LABS: INR 0.9 (<1.2); Partial Thromboplastin Time 26.8 sec (22.0-30.0); Prothrombin Time 9.9 sec (9.0-12.0)
[2018-08-22 10:13] LABS: Band Neutrophils % 2 %; Lymphocytes # (M) 3.06 k/uL (1.0-4.8); Monocytes # (M) 1.88 k/uL (0-1.0); Neutrophils % (M) 77 %; Nucleated Red Blood Cells 0 /100 WBC (0-0); Total Cells Counted 100
[2018-08-22 10:19] LABS: Stomatocytes Present
[2018-08-22] MEDS: INSULIN REGULAR 100 UNIT in SODIUM CHLORIDE 0.9% 100 ML IV SCH ×2 (10:57→18:41)
[2018-08-22 11:29] LABS: Glucose,Whole Blood >600 mg/dL (75-99)
[2018-08-22] MEDS ORDERED: INSULIN REGULAR 100 UNIT in SODIUM CHLORIDE 0.9% 100 ML IV SCH (11:45)
[2018-08-22] MEDS: SODIUM CHLORIDE 0.9% 1,000 ML IV SCH ×2 (11:50→17:05)
[2018-08-22 12:39] LABS: Glucose,Whole Blood >600 mg/dL (75-99)
[2018-08-22 13:09] LABS: Glucose,Whole Blood >600 mg/dL (75-99)
[2018-08-22 13:10] LABS: Blood Urea Nitrogen 39 mg/dL (9-20); Chloride 93 mmol/L (98-107); Phosphorus 4.3 mg/dL (2.5-4.5); Sodium 127 mmol/L (137-145)
[2018-08-22 13:24] LABS: Glucose 1013 mg/dL (74-99)
[2018-08-22 13:25] LABS: Carbon Dioxide <5 mmol/L (22-30)
--- NOTE | 2018-08-22 13:59 | P.CNPUL ---
History of Present Illness Consult date: 08/22/18 Requesting physician: Kyler Alvarado Reason for consult: other (Critical care management) Chief complaint: Chest pain, shortness of breath, confusion. History of present illness: This is a 38-year-old gentleman who follows with Dr. Nielsen as his primary care physician. He has a history of hypertension, gastroesophageal reflux disease, osteoarthritis, avascular necrosis with previous left hip replacement, sleep apnea not on CPAP in the outpatient setting, migraines depression, ADHD, posttraumatic stress disorder. He also has history of chronic and ongoing tobacco dependence. EMS was called to his home this morning as he was complaining of chest pain, shortness of breath and confusion. The patient had stated he had been drinking a lot of Gatorade the last few days. In the emergency room he was found to be an acute diabetic ketoacidosis with a presenting blood glucose of 1223. Sodium 119, chloride 81, bicarb less than 5, calcium 6.7, acetone positive. Creatinine 3.49 Arterial blood gases on 28% FiO2 revealed a PaO2 of 103, pCO2 less than 15, pH 7.07. He was initiated on the DKA protocol. He was seen and evaluated in the emergency room. He is currently quite drowsy but does arouse to verbal stimuli. Moving all fours. Following simple commands. He is currently on an insulin drip at 0.12 units per kilogram per hour. 0.9 normal saline at 200 ML's per hour. He is status post 3 L of fluid resuscitation. He is currently maintaining good O2 saturations in the upper 90s on 2 L/m per nasal cannula. He's been afebrile. He is tachycardic and tachypneic. Most recent labs reveal a WBC 23.5. Hemoglobin 14.7. Neutrophils 18.5. Sodium 127. Potassium 5.0. Chloride 93. Bicarb remains less than 5. Creatinine 2.58. Blood glucose 1013. Unable to calculate an anion gap. Review of Systems ROS unobtainable: due to mental status Past Medical History Past Medical History: GERD/Reflux, Hypertension, Osteoarthritis (OA), Rheumatoid Arthritis (RA), Sleep Apnea/CPAP/BIPAP Additional Past Medical History / Comment(s): AVASCULAR NECROSIS. MIGRAINES. ALLERGIES. DOES NOT USE CPAP. History of Any Multi-Drug Resistant Organisms: None Reported Past Surgical History: Back Surgery, Joint Replacement, Orthopedic Surgery Additional Past Surgical History / Comment(s): RIGHT ROTATOR CUFF REPAIR. TOTAL JOINT RIGHT SHOULDER @ [facility]. LEFT KNEE ARTHROSCOPY. SINUS. C6-7, ANTERIOR TOTAL LEFT HIP ARTHROPLASTY, Past Anesthesia/Blood Transfusion Reactions: No Reported Reaction Past Psychological History: ADD/ADHD, Anxiety, Depression, PTSD Smoking Status: Current every day smoker Past Alcohol Use History: Rare Additional Past Alcohol Use History / Comment(s): 1/2 PPD, SMOKED 20 YEARS. Past Drug Use History: None Reported - Past Family History Mother Family Medical History: No Reported History Medications and Allergies Home Medications Medication Instructions Recorded Confirmed Type Cholecalciferol (Vitamin D3) 2,000 unit PO DAILY 11/11/17 08/22/18 History [Vitamin D3] Dextroamphetamine/Amphetamine 30 mg PO QAM 11/11/17 08/22/18 History [Adderall] Folic Acid 1 mg PO DAILY 11/11/17 08/22/18 History Lisinopril [Zestril] 10 mg PO QAM 11/11/17 08/22/18 History Loratadine 10 mg PO DAILY 11/11/17 11/18/17 History [place]-3 Fatty Acids/Fish Oil [Fish 1 cap PO DAILY 11/11/17 11/18/17 History Oil 1,000 mg Softgel] Ranitidine HCl [Zantac] 150 mg PO BID 11/11/17 11/18/17 History SUMAtriptan SUCCINATE [Imitrex] 25 mg PO DAILY PRN 11/11/17 11/18/17 History Sertraline [Zoloft] 200 mg PO QAM 11/11/17 08/22/18 History Zolpidem [Ambien] 10 mg PO HS PRN 11/11/17 11/18/17 History oxyCODONE-APAP 10-325MG [Percocet 1 tab PO Q6H PRN 11/11/17 08/22/18 History 10-325 mg] Aspirin 325 mg PO BID #60 tab 11/18/17 Rx Sennosides [Senokot] 1 tab PO BID #60 tablet 11/18/17 08/22/18 Rx ARIPiprazole [Abilify] 10 mg PO DAILY 08/22/18 08/22/18 History Niacin 1,000 mg PO HS 08/22/18 08/22/18 History Prazosin HCl 4 mg PO HS 08/22/18 08/22/18 History Topiramate [Topamax] 50 mg PO DAILY 08/22/18 08/22/18 History Allergies Allergy/AdvReac Type Severity Reaction Status Date / Time morphine Allergy HEADACHE, Verified 08/22/18 09:23 AGITATION Physical Exam Vitals: Vital Signs Temp Pulse Resp BP Pulse Ox 08/22/18 13:00 125 H 28 H 155/72 99 08/22/18 12:00 122 H 32 H 121/70 100 08/22/18 11:00 123 H 28 H 98/26 99 08/22/18 10:00 111 H 38 H 111/62 99 08/22/18 09:00 121 H 32 H 127/64 98 08/22/18 08:35 97.0 F L 117 H 32 H 127/64 Intake and Output 08/21/18 08/22/18 08/22/18 22:59 06:59 14:59 Intake Total 22.312 Balance 22.312 Intake: Intake, IV Titration 22.312 Amount Insulin Regular 100 unit 22.312 In Sodium Chloride 0.9% 100 ml @ 0.1 UNITS/KG/HR 10.1 mls/hr IV .Q10H [facility] Rx#:[id number] Other: Weight 100 kg GENERAL EXAM: Drowsy, arouses to verbal stimuli, following commands, moving all fours. HEAD: Normocephalic. EYES: Normal reaction of pupils, equal size. NOSE: Clear with pink turbinates. THROAT: No erythema or exudates. NECK: No masses, no JVD. CHEST: No chest wall deformity. LUNGS: Equal air entry with no crackles, wheeze, rhonchi or dullness. CVS: S1 and S2 normal with no audible murmur, regular rhythm. ABDOMEN: No hepatosplenomegaly, normal bowel sounds, no guarding or rigidity. SPINE: No scoliosis or deformity SKIN: No rashes CENTRAL NERVOUS SYSTEM: No focal deficits, tone is normal in all 4 extremities. EXTREMITIES: There is no peripheral edema. No clubbing, no cyanosis. Peripheral pulses are intact. Results - Laboratory Findings CBC and BMP: 08/22/18 08:48 08/22/18 12:17 ABG ABG pH 7.07 (7.35-7.45) L* 08/22/18 09:12 ABG pCO2 <15 mmHg (35-45) L* 08/22/18 09:12 ABG pO2 103 mmHg (83-108) 08/22/18 09:12 ABG O2 Saturation 96.0 % (94-97) 08/22/18 09:12 PT/INR, D-dimer PT 9.9 sec (9.0-12.0) 08/22/18 08:48 INR 0.9 (<1.2) 08/22/18 08:48 Abnormal lab findings: Abnormal Labs 08/22/18 08/22/18 08/22/18 08:48 08:48 09:12 WBC 23.5 H MCHC 29.8 L Neutrophils # (Manual) 18.50 H Monocytes # (Manual) 1.88 H ABG pH 7.07 L* ABG pCO2 <15 L* ABG HCO3 3 L* Sodium 119 L* Potassium 6.7 H* Chloride 81 L Carbon Dioxide <5 L* BUN 36 H Creatinine 3.49 H Glucose 1223 H* POC Glucose (mg/dL) 08/22/18 08/22/18 08/22/18 11:26 12:06 12:17 WBC MCHC Neutrophils # (Manual) Monocytes # (Manual) ABG pH ABG pCO2 ABG HCO3 Sodium 127 L Potassium Chloride 93 L Carbon Dioxide <5 L* BUN 39 H Creatinine 2.58 H Glucose 1013 H* POC Glucose (mg/dL) >600 H >600 H 08/22/18 12:59 WBC MCHC Neutrophils # (Manual) Monocytes # (Manual) ABG pH ABG pCO2 ABG HCO3 Sodium Potassium Chloride Carbon Dioxide BUN Creatinine Glucose POC Glucose (mg/dL) >600 H - Diagnostic Findings Chest x-ray: image reviewed (No acute cardiopulmonary process) Assessment and Plan Assessment: Impression: #1 Acute diabetic ketoacidosis in a patient who has not previously been diagnosed as diabetic. #2 Metabolic acidosis, suspect anion gap secondary to diabetic ketoacidosis. #3 hyperkalemia secondary to above. #4 Acute renal failure. Secondary to above #5 Hyponatremic hypochloremia and dairy to above. #6 Leukocytosis secondary to above. #7 Hypertension. #8 Attention deficit disorder. #9 History of depression/posttraumatic stress as ordered. #10 History of avascular necrosis with previous left hip surgery. #11 History of migraines. #12 history of obstructive sleep apnea not on CPAP the outpatient setting. #13 Chronic and ongoing tobacco dependence. Plan: The patient was seen and evaluated in the emergency room by Dr. Samuels. Chest x-ray and labs were reviewed. The patient will return be transferred to the intensive care unit. Continue labs per protocol. Continue diabetic ketoacidosis protocol. We'll continue to follow and make further recommendations based on his clinical status. I, the cosigning physician, performed a history & physical examination of the patient. Lungs sounds are clear. Maintaining good O2 saturations in the 90s on room air. I discussed the assessment and plan of care with my nurse practitioner, Poly Garcia. I attest to the above consultation as dictated by her. Time with Patient: Greater than 30
[2018-08-22 14:12] LABS: Glucose,Whole Blood >600 mg/dL (75-99)
[2018-08-22 15:16] LABS: Glucose,Whole Blood 568 mg/dL (75-99)
[2018-08-22] MEDS ORDERED: KETOROLAC 30 MG/ML 1 ML VIAL IVP STA (16:07)
[2018-08-22 16:46] LABS: Phosphorus 2.4 mg/dL (2.5-4.5); Potassium 4.3 mmol/L (3.5-5.1)
[2018-08-22 17:14] LABS: Glucose,Whole Blood 420 mg/dL (75-99)
[2018-08-22 17:14] LABS: Glucose,Whole Blood 465 mg/dL (75-99)
[2018-08-22 18:12] LABS: Glucose,Whole Blood 333 mg/dL (75-99)
[2018-08-22 19:13] LABS: Glucose,Whole Blood 327 mg/dL (75-99)
[2018-08-22] MEDS ORDERED: oxyCODONE-APAP 10-325MG 1 EACH TAB PO PRN (19:25)
[2018-08-22] MEDS ORDERED: MAGNESIUM HYDROXIDE 2,400 MG/10 ML CUP PO PRN (19:26)
[2018-08-22] MEDS ORDERED: ONDANSETRON 4 MG/2 ML VIAL IVP PRN (19:26)
[2018-08-22] MEDS ORDERED: TEMAZEPAM 15 MG CAP PO PRN (19:26)
[2018-08-22] MEDS ORDERED: CALCIUM CARBONATE 500 MG CHEWABLE PO PRN (19:26)
[2018-08-22] MEDS ORDERED: NALOXONE 0.4 MG/ML 1 ML VIAL IV PRN (19:26)
[2018-08-22] MEDS ORDERED: ACETAMINOPHEN TAB 325 MG TAB PO PRN (19:26)
[2018-08-22] MEDS ORDERED: LACTULOSE 20 GM/30 ML CUP PO PRN (19:26)
[2018-08-22] MEDS ORDERED: ALPRAZolam 0.25 MG TAB PO PRN (19:26)
[2018-08-22 20:25] LABS: Glucose,Whole Blood 207 mg/dL (75-99)
[2018-08-22] MEDS: D5-0.45% NACL WITH KCL 20MEQ/L 1,000 ML IV SCH (20:25)
--- NOTE | 2018-08-22 21:02 | HP ---
HISTORY AND PHYSICAL DATE OF ADMISSION: 08/22/2018 DATE OF SERVICE: 08/22/2018 PRESENTING COMPLAINT: Feeling unwell. HISTORY OF PRESENTING COMPLAINT: A very pleasant 38-year-old patient that follows with Dr. Nielsen out of [place]. Accompanied by his . Chronic stable medical conditions include GERD, hypertension, osteoarthritis, aseptic necrosis, anxiety, depression, PTSD. The patient presents with diabetic ketoacidosis with a blood glucose of 1223, potassium of 6.7, severely acidotic. relates a history that for a few days, patient has been getting very thirsty and making a lot of urine and the last day or so, started breathing heavy and patient has lost about 48 pounds. The patient is found to be severely acute acidotic in the ER, started on insulin drip. Strict I's and Os. Landa catheter was placed. There was no fever or chills. No urinary symptoms. No respiratory symptoms. The patient is somewhat delirious in the ER when I saw the patient. REVIEW OF SYSTEMS: CONSTITUTIONAL: Tired. Weight loss. HEENT: None. RESPIRATORY: None. GASTROINTESTINAL: None. GENITOURINARY: Landa catheter. MUSCULOSKELETAL: Pain in the joints. DERMATOLOGICAL, HEMATOLOGIC, LYMPHATIC: None. PSYCHIATRY: Currently a bit delirious. NEUROLOGICAL: None. PAST MEDICAL HISTORY: GERD, hypertension, osteoarthritis, rheumatoid arthritis. Obstructive sleep apnea, does not use CPAP machine, avascular necrosis, migraines. PAST SURGICAL HISTORY: Back surgery, joint replacement, right rotator cuff repair, total right shoulder at [place], left knee arthroscopy, C6-7 anterior, total hip arthroplasty. PSYCH HISTORY: ADHD, anxiety, depression, PTSD. SOCIAL HISTORY: Smokes a pack a day for over 20 years. Alcohol rarely. Patient is retired from the [employer]. FAMILY HISTORY: Diabetes. MEDICATIONS: Home medications: 1. Percocet 10 one tablet q.6h p.r.n. 2. Topamax 50 mg p.o. daily. 3. Zoloft 200 mg p.o. daily. 4. Senokot 1 tablet p.o. b.i.d. 5. Prazosin 4 mg q.h.s. 6. Niacin 1000 mg q.h.s. 7. Zestril 10 mg p.o. daily. 8. Folic acid 1 mg p.o. daily. 9. Adderall 30 mg p.o. daily. 10.Vitamin D3 2000 units p.o. daily. 11.Abilify 10 mg p.o. daily. ALLERGIES: MORPHINE. PHYSICAL EXAMINATION: VITAL SIGNS: Vital signs on presentation, temperature 97, pulse 117, respiration 22, blood pressure 127/65, pulse ox 98% on 2 L. GENERAL APPEARANCE: Well built, BMI 33.5, somewhat delirious, restless. EYES: Pupils equal, conjunctivae normal. HEENT: External appearance of nose and ears normal. Oral cavity dry mucous membranes. NECK: JVD not raised. Mass not palpable. RESPIRATORY: Effort increased. LUNGS: Slight decreased breath sounds. CARDIOVASCULAR: 1st and 2nd sounds normal. No edema. ABDOMEN: Soft, nontender. Liver and spleen not palpable. LYMPHATICS: No lymph nodes palpable in the neck and axilla. PSYCHIATRY: Patient can answer some questions, somewhat delirious. NEUROLOGICAL: Pupils, no facial asymmetry. Moving all 4 limbs. INVESTIGATION: White count 23.5, hemoglobin 14.7. Blood gases showed pH of 7.07, pCO2 less than 15, bicarb of 3. Sodium 119, potassium 6.7, bicarb less than 5, BUN 36, creatinine 3.49, glucose . Serum acetone positive. ASSESSMENT: 1. Acute diabetic ketoacidosis, new onset. 2. Hyperkalemia secondary to ketoacidosis. 3. Pseudohyponatremia from hyperglycemia. 4. Acute renal failure likely prerenal. 5. Leukocytosis likely hemoconcentration. No clinical evidence of infection. 6. Acute delirium from severe metabolic encephalopathy. 7. Gastroesophageal reflux disease. 8. Essential hypertension. 9. Anxiety, depression not otherwise specified. 10.PTSD. PLAN: The patient is put on DKA protocol including insulin drip. Electrolytes will be followed closely. The patient has moved to the ICU. Geomorphologist was consulted. Later towards the evening sugars did come down to the 300s. Plan is start the patient on Levemir tomorrow morning, 20 units with 4 units of Humalog with meals. Insulin drip will be stopped at 6 o'clock tomorrow morning. Electrolytes and magnesium will be closely followed. We will also give the patient a nicotine patch. Copy to Dr. Nielsen. SANDRINEL / CHELN: [id number] /
[2018-08-22 21:13] LABS: Glucose,Whole Blood 192 mg/dL (75-99)
[2018-08-22 21:15] LABS: Anion Gap 13 mmol/L; Blood Urea Nitrogen 29 mg/dL (9-20); Calcium 8.9 mg/dL (8.4-10.2); Carbon Dioxide 13 mmol/L (22-30); Chloride 116 mmol/L (98-107); Glucose 212 mg/dL (74-99); Sodium 142 mmol/L (137-145)
[2018-08-22 21:17] LABS: Magnesium 2.5 mg/dL (1.6-2.3); Phosphorus 2.3 mg/dL (2.5-4.5); Potassium 4.3 mmol/L (3.5-5.1)
[2018-08-22] MEDS ORDERED: Phosphorus Replacement Protoco 1 EACH MISC MISCELLANE PRN (21:55)
[2018-08-22 22:01] LABS: Glucose,Whole Blood 180 mg/dL (75-99)
[2018-08-22] MEDS: ENOXAPARIN 40 MG/0.4 ML SYRINGE SQ SCH (22:09)
[2018-08-22 22:10] LABS: Glucose,Whole Blood 167 mg/dL (75-99)
[2018-08-22] MEDS: SENNOSIDES 8.6 MG TAB PO SCH (22:10)
[2018-08-22] MEDS: NICOTINE 21MG/24HR PATCH TRANSDERM SCH (22:10)
[2018-08-22] MEDS: PRAZOSIN 1 MG CAP PO SCH (22:12)
[2018-08-22] MEDS: NIACIN TR 500 MG CAPSULE.ER PO SCH (22:13)
[2018-08-22] MEDS ORDERED: SODIUM PHOSPHATE 10 MMOL in SODIUM CHLORIDE 0.9% 250 ML IV ONE (23:00)
[2018-08-22 23:22] LABS: Glucose,Whole Blood 152 mg/dL (75-99)
[2018-08-23] MEDS: INSULIN REGULAR 100 UNIT in SODIUM CHLORIDE 0.9% 100 ML IV SCH ×2 (00:08→18:35)
[2018-08-23 00:17] LABS: Glucose,Whole Blood 146 mg/dL (75-99)
[2018-08-23 01:06] LABS: Glucose,Whole Blood 182 mg/dL (75-99)
[2018-08-23 02:20] LABS: Glucose,Whole Blood 210 mg/dL (75-99)
[2018-08-23 03:17] LABS: Glucose,Whole Blood 228 mg/dL (75-99)
[2018-08-23 03:18] LABS: Basophils % (A) 0 %; Eosinophils # (A) 0.1 k/uL (0-0.7); Eosinophils % (A) 1 %; HCT 42.1 % (39.0-53.0); HGB 14.1 gm/dL (13.0-17.5); Lymphocytes # (A) 1.3 k/uL (1.0-4.8); Lymphocytes % (A) 13 %; MCH 29.5 pg (25.0-35.0); MCHC 33.4 g/dL (31.0-37.0); Mean Platelet Volume 7.7; Monocytes # (A) 0.7 k/uL (0-1.0); Monocytes % (A) 7 %; Neutrophils # (A) 7.7 k/uL (1.3-7.7); Neutrophils % (A) 77 %; Platelet Count 169 k/uL (150-450); RBC 4.76 m/uL (4.30-5.90); RDW 13.3 % (11.5-15.5); WBC 9.9 k/uL (3.8-10.6)
[2018-08-23 03:26] LABS: Anion Gap 18 mmol/L; Blood Urea Nitrogen 23 mg/dL (9-20); Calcium 8.4 mg/dL (8.4-10.2); Chloride 109 mmol/L (98-107); Glucose 211 mg/dL (74-99); Magnesium 2.5 mg/dL (1.6-2.3); Sodium 136 mmol/L (137-145)
[2018-08-23 03:32] LABS: Carbon Dioxide 9 mmol/L (22-30)
[2018-08-23 03:43] LABS: MCV 88.4 fL (80.0-100.0)
[2018-08-23] MEDS: D5-0.45% NACL WITH KCL 20MEQ/L 1,000 ML IV SCH ×4 (03:45→18:33)
[2018-08-23 04:12] LABS: Glucose,Whole Blood 221 mg/dL (75-99)
[2018-08-23 04:26] LABS: Phosphorus 2.8 mg/dL (2.5-4.5)
[2018-08-23 05:25] LABS: Glucose,Whole Blood 288 mg/dL (75-99)
[2018-08-23 06:16] LABS: Glucose,Whole Blood 249 mg/dL (75-99)
[2018-08-23 06:50] LABS: Glucose,Whole Blood 237 mg/dL (75-99)
[2018-08-23] MEDS ORDERED: INSULIN ASPART (NovoLOG) 100 UNIT/ML VIAL SQ SCH (07:30)
[2018-08-23] MEDS ORDERED: INSULIN DETEMIR (LEVEMIR) 100 UNIT/ML SYR SQ SCH (08:00)
[2018-08-23 08:03] LABS: Anion Gap 12 mmol/L; Blood Urea Nitrogen 19 mg/dL (9-20); Calcium 8.9 mg/dL (8.4-10.2); Carbon Dioxide 16 mmol/L (22-30); Chloride 112 mmol/L (98-107); Glucose 255 mg/dL (74-99); Magnesium 2.4 mg/dL (1.6-2.3); Phosphorus 2.5 mg/dL (2.5-4.5); Potassium 4.4 mmol/L (3.5-5.1); Sodium 140 mmol/L (137-145)
[2018-08-23] MEDS: SODIUM CHLORIDE 0.9% 1,000 ML IV SCH ×5 (08:25→18:36)
[2018-08-23 08:31] LABS: Glucose,Whole Blood 228 mg/dL (75-99)
[2018-08-23] MEDS ORDERED: LISINOPRIL 10 MG TAB PO SCH (09:00)
[2018-08-23 09:15] LABS: Glucose,Whole Blood 214 mg/dL (75-99)
[2018-08-23 10:01] LABS: Glucose,Whole Blood 227 mg/dL (75-99)
[2018-08-23] MEDS: SENNOSIDES 8.6 MG TAB PO SCH ×2 (10:18→22:02)
[2018-08-23] MEDS: NICOTINE 21MG/24HR PATCH TRANSDERM SCH (10:19)
[2018-08-23] MEDS: SERTRALINE 100 MG TAB PO SCH (10:19)
[2018-08-23] MEDS: ENOXAPARIN 40 MG/0.4 ML SYRINGE SQ SCH (10:19)
[2018-08-23] MEDS: TOPIRAMATE 25 MG TAB PO SCH (10:20)
[2018-08-23] MEDS: NON-FORMULARY DRUG (Dextroamphetamine/Amphetamine [Adderall] 30 MG) PO SCH (10:45)
[2018-08-23 11:03] LABS: Glucose,Whole Blood 221 mg/dL (75-99)
[2018-08-23 11:45] LABS: Glucose,Whole Blood 210 mg/dL (75-99)
[2018-08-23] MEDS: FOLIC ACID 1 MG TAB PO SCH (12:15)
[2018-08-23 12:16] LABS: Glucose,Whole Blood 218 mg/dL (75-99)
[2018-08-23 13:13] LABS: Glucose,Whole Blood 230 mg/dL (75-99)
--- NOTE | 2018-08-23 13:52 | P.PN ---
Subjective Progress Note Date: 08/23/18 This is a 38-year-old gentleman who follows with Dr. Nielsen as his primary care physician. He has a history of hypertension, gastroesophageal reflux disease, osteoarthritis, avascular necrosis with previous left hip replacement, sleep apnea not on CPAP in the outpatient setting, migraines depression, ADHD, posttraumatic stress disorder. He also has history of chronic and ongoing tobacco dependence. EMS was called to his home this morning as he was complaining of chest pain, shortness of breath and confusion. The patient had stated he had been drinking a lot of Gatorade the last few days. In the emergency room he was found to be an acute diabetic ketoacidosis with a presenting blood glucose of 1223. Sodium 119, chloride 81, bicarb less than 5, calcium 6.7, acetone positive. Creatinine 3.49 Arterial blood gases on 28% FiO2 revealed a PaO2 of 103, pCO2 less than 15, pH 7.07. He was initiated on the DKA protocol. He was seen and evaluated in the emergency room. He is currently quite drowsy but does arouse to verbal stimuli. Moving all fours. Following simple commands. He is currently on an insulin drip at 0.12 units per kilogram per hour. 0.9 normal saline at 200 ML's per hour. He is status post 3 L of fluid resuscitation. He is currently maintaining good O2 saturations in the upper 90s on 2 L/m per nasal cannula. He's been afebrile. He is tachycardic and tachypneic. Most recent labs reveal a WBC 23.5. Hemoglobin 14.7. Neutrophils 18.5. Sodium 127. Potassium 5.0. Chloride 93. Bicarb remains less than 5. Creatinine 2.58. Blood glucose 1013. Unable to calculate an anion gap. On today's evaluation of 08/23/2018, the patient remains on an insulin drip. Blood sugar control is improved. The patient is still on 5 units of insulin per hour. The most recent blood sugar is 250.The patient's anion gap is at 12 with a serum bicarbonate of extreme. He is still tachycardic. He is still lethargic and somnolent. Nevertheless, much improved compared to yesterday. He is arousable. He is following commands and answering questions appropriately. Denies having any chest pain. No cough sputum production chest answer wheezing. Chest x-ray was clear. No nausea. No vomiting. No abdominal pain. His resting comfortably in bed. He has underlying sinus tachycardia. Objective - Vital Signs Vital signs: Vital Signs Temp 98.2 F 08/23/18 12:00 Pulse 117 H 08/23/18 12:00 Resp 37 H 08/23/18 12:00 BP 148/73 08/23/18 12:00 Pulse Ox 93 L 08/23/18 12:00 Intake & Output 08/22/18 08/23/18 08/23/18 18:59 06:59 18:59 Intake Total 807.108 3477.329 750 Output Total 700 1850 1320 Balance -599.000 310.329 -570 Weight 100 kg 96.4 kg Intake: IV 2050 750 D5-0.45% NaCl with KCl 1600 750 20Meq/l 1,000 ml @ 150 mls/hr IV .Q6H40M [facility] Rx# :[id number] Sodium Chloride 0.9% 1, 200 000 ml @ 200 mls/hr IV . Q5H [facility] Rx#:[id number] Sodium Phosphate 10 mmol 250 In Sodium Chloride 0.9% 250 ml @ 125 mls/hr IV ONCE ONE Rx#:[id number] Intake, IV Titration 101.000 110.329 Amount Insulin Regular 100 unit 101.000 110.329 In Sodium Chloride 0.9% 100 ml @ 0.1 UNITS/KG/HR 10.1 mls/hr IV .Q10H [facility] Rx#:[id number] Output: Urine 700 1850 1320 Other: Voiding Method Indwelling Catheter Indwelling Catheter - Exam GENERAL EXAM: Drowsy, arouses to verbal stimuli, following commands, moving all fours. HEAD: Normocephalic. EYES: Normal reaction of pupils, equal size. NOSE: Clear with pink turbinates. THROAT: No erythema or exudates. NECK: No masses, no JVD. CHEST: No chest wall deformity. LUNGS: Equal air entry with no crackles, wheeze, rhonchi or dullness. CVS: S1 and S2 normal with no audible murmur, regular rhythm. ABDOMEN: No hepatosplenomegaly, normal bowel sounds, no guarding or rigidity. SPINE: No scoliosis or deformity SKIN: No rashes CENTRAL NERVOUS SYSTEM: No focal deficits, tone is normal in all 4 extremities. EXTREMITIES: There is no peripheral edema. No clubbing, no cyanosis. Peripheral pulses are intact. - Labs CBC & Chem 7: 08/23/18 02:42 08/23/18 07:29 Labs: Abnormal Lab Results - Last 24 Hours (Table) 08/22/18 08/22/18 08/22/18 Range/Units 13:59 15:03 15:41 Sodium (137-145) mmol/L Chloride 108 H (98-107) mmol/L Carbon Dioxide 9 L* (22-30) mmol/L BUN 35 H (9-20) mg/dL Creatinine 1.39 H (0.66-1.25) mg/dL Glucose 558 H* (74-99) mg/dL POC Glucose (mg/dL) >600 H 568 H (75-99) mg/dL Phosphorus 2.4 L (2.5-4.5) mg/dL Magnesium (1.6-2.3) mg/dL 08/22/18 08/22/18 08/22/18 Range/Units 16:01 17:01 18:09 Sodium (137-145) mmol/L Chloride (98-107) mmol/L Carbon Dioxide (22-30) mmol/L BUN (9-20) mg/dL Creatinine (0.66-1.25) mg/dL Glucose (74-99) mg/dL POC Glucose (mg/dL) 465 H 420 H 333 H (75-99) mg/dL Phosphorus (2.5-4.5) mg/dL Magnesium (1.6-2.3) mg/dL 08/22/18 08/22/18 08/22/18 Range/Units 19:00 20:23 20:24 Sodium (137-145) mmol/L Chloride 116 H (98-107) mmol/L Carbon Dioxide 13 L (22-30) mmol/L BUN 29 H (9-20) mg/dL Creatinine (0.66-1.25) mg/dL Glucose 212 H (74-99) mg/dL POC Glucose (mg/dL) 327 H 207 H (75-99) mg/dL Phosphorus 2.3 L (2.5-4.5) mg/dL Magnesium 2.5 H (1.6-2.3) mg/dL 08/22/18 08/22/18 08/22/18 Range/Units 20:58 21:36 22:08 Sodium (137-145) mmol/L Chloride (98-107) mmol/L Carbon Dioxide (22-30) mmol/L BUN (9-20) mg/dL Creatinine (0.66-1.25) mg/dL Glucose (74-99) mg/dL POC Glucose (mg/dL) 192 H 180 H 167 H (75-99) mg/dL Phosphorus (2.5-4.5) mg/dL Magnesium (1.6-2.3) mg/dL 08/22/18 08/23/18 08/23/18 Range/Units 23:19 00:03 01:04 Sodium (137-145) mmol/L Chloride (98-107) mmol/L Carbon Dioxide (22-30) mmol/L BUN (9-20) mg/dL Creatinine (0.66-1.25) mg/dL Glucose (74-99) mg/dL POC Glucose (mg/dL) 152 H 146 H 182 H (75-99) mg/dL Phosphorus (2.5-4.5) mg/dL Magnesium (1.6-2.3) mg/dL 08/23/18 08/23/18 08/23/18 Range/Units 02:17 02:42 03:14 Sodium 136 L (137-145) mmol/L Chloride 109 H (98-107) mmol/L Carbon Dioxide 9 L* (22-30) mmol/L BUN 23 H (9-20) mg/dL Creatinine 0.59 L (0.66-1.25) mg/dL Glucose 211 H (74-99) mg/dL POC Glucose (mg/dL) 210 H 228 H (75-99) mg/dL Phosphorus (2.5-4.5) mg/dL Magnesium 2.5 H (1.6-2.3) mg/dL 08/23/18 08/23/18 08/23/18 Range/Units 04:09 05:11 06:14 Sodium (137-145) mmol/L Chloride (98-107) mmol/L Carbon Dioxide (22-30) mmol/L BUN (9-20) mg/dL Creatinine (0.66-1.25) mg/dL Glucose (74-99) mg/dL POC Glucose (mg/dL) 221 H 288 H 249 H (75-99) mg/dL Phosphorus (2.5-4.5) mg/dL Magnesium (1.6-2.3) mg/dL 08/23/18 08/23/18 08/23/18 Range/Units 06:47 07:29 08:12 Sodium (137-145) mmol/L Chloride 112 H (98-107) mmol/L Carbon Dioxide 16 L (22-30) mmol/L BUN (9-20) mg/dL Creatinine (0.66-1.25) mg/dL Glucose 255 H (74-99) mg/dL POC Glucose (mg/dL) 237 H 228 H (75-99) mg/dL Phosphorus (2.5-4.5) mg/dL Magnesium 2.4 H (1.6-2.3) mg/dL 08/23/18 08/23/18 08/23/18 Range/Units 09:00 09:57 11:00 Sodium (137-145) mmol/L Chloride (98-107) mmol/L Carbon Dioxide (22-30) mmol/L BUN (9-20) mg/dL Creatinine (0.66-1.25) mg/dL Glucose (74-99) mg/dL POC Glucose (mg/dL) 214 H 227 H 221 H (75-99) mg/dL Phosphorus (2.5-4.5) mg/dL Magnesium (1.6-2.3) mg/dL 08/23/18 08/23/18 08/23/18 Range/Units 11:25 11:49 12:59 Sodium (137-145) mmol/L Chloride (98-107) mmol/L Carbon Dioxide (22-30) mmol/L BUN (9-20) mg/dL Creatinine (0.66-1.25) mg/dL Glucose (74-99) mg/dL POC Glucose (mg/dL) 210 H 218 H 230 H (75-99) mg/dL Phosphorus (2.5-4.5) mg/dL Magnesium (1.6-2.3) mg/dL Assessment and Plan Plan: Impression: #1 Acute diabetic ketoacidosis in a patient who has not previously been diagnosed as diabetic. The patient had severe anion gap metabolic acidosis. The patient was started on insulin drip and his improvement in his anion gap is down to 12 with a serum bicarb of 16. He remains on an insulin drip at 5 units an hour in addition to D5 half-normal saline infusion. #2 Metabolic acidosis, anion gap secondary to diabetic ketoacidosis, improving #3 hyperkalemia secondary to above. #4 Acute renal failure. Secondary to above #5 Hyponatremic secondary to hyperglycemia, improved #6 Leukocytosis secondary to above, improved #7 Hypertension. #8 Attention deficit disorder. #9 History of depression/posttraumatic stress as ordered. #10 History of avascular necrosis with previous left hip surgery. #11 History of migraines. #12 history of obstructive sleep apnea not on CPAP the outpatient setting. #13 Chronic and ongoing tobacco dependence. Plan: The patient's serum bicarbonate remains low. Continue insulin drip. Monitor the anion gap. We will likely need another 8-12 hours of IV insulin treatment and probably will switch him to a long-acting insulin by nighttime. He is still drowsy and sleepy although his mental status improved considerably compared to yesterday. He has sinus tachycardia. This has also improved. He has a well resuscitated IV fluids. The white cell count is down to 9.9. We'll continue to follow. We'll keep the patient ICU for another 24 hours.
[2018-08-23 14:06] LABS: Glucose,Whole Blood 225 mg/dL (75-99)
[2018-08-23 14:59] LABS: Glucose,Whole Blood 226 mg/dL (75-99)
[2018-08-23 15:48] LABS: Anion Gap 12 mmol/L; Blood Urea Nitrogen 14 mg/dL (9-20); Carbon Dioxide 14 mmol/L (22-30); Chloride 111 mmol/L (98-107); Glucose 241 mg/dL (74-99); Potassium 4.6 mmol/L (3.5-5.1); Sodium 137 mmol/L (137-145)
[2018-08-23 16:03] LABS: Glucose,Whole Blood 212 mg/dL (75-99)
[2018-08-23 17:04] LABS: Glucose,Whole Blood 220 mg/dL (75-99)
[2018-08-23] MEDS ORDERED: Magnesium Replacement Protocol 1 EACH MISC MISCELLANE PRN (17:31)
[2018-08-23] MEDS ORDERED: Potassium Replacement Protocol 1 EACH MISC MISCELLANE PRN (17:31)
[2018-08-23 18:14] LABS: Glucose,Whole Blood 204 mg/dL (75-99)
--- NOTE | 2018-08-23 19:51 | PN ---
PROGRESS NOTE DATE OF SERVICE: 08/23/18. PRESENTING COMPLAINT: Tired. INTERVAL HISTORY: This patient admitted to the ICU. Presented with new onset diabetic ketoacidosis. The patient remains on insulin drip, was a bit more awake per the , but has not still closed this gap. Sugars are running in about 300s. Remains on the drip. The patient was scheduled to have a long-acting insulin this morning that of course was held. REVIEW OF SYSTEMS: Cannot be done as patient rather lethargic but arousable. CURRENT MEDICATIONS: Reviewed that include insulin drip, D5 0.45. PHYSICAL EXAMINATION: VITAL SIGNS: Temperature 98.2, pulse 117, respirations 20, blood pressure 114/73, pulse ox 93% on room air. GENERAL APPEARANCE: Lying in bed, lethargic but arousable. EYES: Pupils equal. Conjunctivae normal. NECK: JVD not raised. Mass not palpable. RESPIRATORY: Effort increased. LUNGS: Decreased breath sounds. CARDIOVASCULAR: 1st and 2nd sounds normal. No edema. ABDOMEN: Soft, nontender. Liver and spleen not palpable. PSYCHIATRY: Lethargic, but arousable. INVESTIGATIONS: Potassium 4.6, bicarb 14, BUN 14, creatinine 0.65. Accu-Cheks 226. 212. ASSESSMENT: 1. Acute diabetic ketoacidosis, new onset, slow to respond. 2. Hyperkalemia secondary to ketoacidosis, improved. 3. Pseudohyponatremia from hyperglycemia, better. 4. Acute renal failure prerenal, improved. 5. Leukocytosis from hemoconcentration. 6. Acute delirium from severe metabolic encephalopathy slow to respond. 7. Gastroesophageal reflux disease. 8. Essential hypertension. 9. Anxiety and depression, not otherwise specified. 10.PTSD. PLAN: Care was discussed with the at the bedside. The patient will be continued on insulin drip, IV fluids with D5 0.4545. Did have the nurse change the ICU pumps just to make sure the dose is correct. Follow closely. MMODL / IJN: [id number] /
[2018-08-23 19:56] LABS: Glucose,Whole Blood 209 mg/dL (75-99)
[2018-08-23 21:37] LABS: Anion Gap 10 mmol/L; Blood Urea Nitrogen 13 mg/dL (9-20); Calcium 9.1 mg/dL (8.4-10.2); Carbon Dioxide 15 mmol/L (22-30); Chloride 112 mmol/L (98-107); Glucose 218 mg/dL (74-99); Potassium 4.1 mmol/L (3.5-5.1); Sodium 137 mmol/L (137-145)
[2018-08-23 21:54] LABS: Glucose,Whole Blood 191 mg/dL (75-99)
[2018-08-23] MEDS: PRAZOSIN 1 MG CAP PO SCH (22:02)
[2018-08-23] MEDS: NIACIN TR 500 MG CAPSULE.ER PO SCH (22:03)
[2018-08-23 22:04] LABS: Glucose,Whole Blood 183 mg/dL (75-99)
[2018-08-23] MEDS ORDERED: MENTHOL (NICE) LOZENGE MUCOUS MEM PRN (22:34)
[2018-08-23 23:33] LABS: Glucose,Whole Blood 186 mg/dL (75-99)
[2018-08-24 00:19] LABS: Glucose,Whole Blood 222 mg/dL (75-99)
[2018-08-24 01:41] LABS: Glucose,Whole Blood 177 mg/dL (75-99)
[2018-08-24 02:02] LABS: Glucose,Whole Blood 172 mg/dL (75-99)
[2018-08-24] MEDS: D5-0.45% NACL WITH KCL 20MEQ/L 1,000 ML IV SCH ×2 (02:30→09:40)
[2018-08-24 02:45] LABS: HGB 12.3 gm/dL (13.0-17.5); MCH 29.6 pg (25.0-35.0); MCHC 34.2 g/dL (31.0-37.0); MCV 86.7 fL (80.0-100.0); Mean Platelet Volume 7.9; Platelet Count 131 k/uL (150-450); RBC 4.15 m/uL (4.30-5.90); RDW 13.5 % (11.5-15.5); WBC 7.5 k/uL (3.8-10.6)
[2018-08-24 02:54] LABS: Anion Gap 11 mmol/L; Blood Urea Nitrogen 11 mg/dL (9-20); Calcium 8.8 mg/dL (8.4-10.2); Carbon Dioxide 16 mmol/L (22-30); Chloride 109 mmol/L (98-107); Glucose 193 mg/dL (74-99); Magnesium 2.3 mg/dL (1.6-2.3); Phosphorus 1.8 mg/dL (2.5-4.5); Potassium 3.4 mmol/L (3.5-5.1); Sodium 136 mmol/L (137-145)
[2018-08-24 03:26] LABS: Glucose,Whole Blood 193 mg/dL (75-99)
[2018-08-24 04:22] LABS: Glucose,Whole Blood 191 mg/dL (75-99)
[2018-08-24] MEDS ORDERED: Phosphorus Replacement Protoco 1 EACH MISC MISCELLANE PRN (04:24)
[2018-08-24] MEDS ORDERED: SODIUM PHOSPHATE 10 MMOL in SODIUM CHLORIDE 0.9% 250 ML IVPB SCH (05:00)
[2018-08-24] MEDS: SODIUM PHOSPHATE 10 MMOL in SODIUM CHLORIDE 0.9% 100 ML IV SCH ×2 (05:03→06:30)
[2018-08-24] MEDS: POTASSIUM CHLORIDE ER 20 MEQ TAB.ER PO SCH ×5 (05:11→22:24)
[2018-08-24 05:20] LABS: Glucose,Whole Blood 204 mg/dL (75-99)
[2018-08-24 05:55] LABS: Glucose,Whole Blood 187 mg/dL (75-99)
[2018-08-24 07:06] LABS: Glucose,Whole Blood 194 mg/dL (75-99)
[2018-08-24 08:13] LABS: Glucose,Whole Blood 262 mg/dL (75-99)
[2018-08-24 08:22] LABS: Anion Gap 11 mmol/L; Blood Urea Nitrogen 8 mg/dL (9-20); Calcium 8.5 mg/dL (8.4-10.2); Carbon Dioxide 15 mmol/L (22-30); Chloride 109 mmol/L (98-107); Glucose 271 mg/dL (74-99); Potassium 3.8 mmol/L (3.5-5.1); Sodium 135 mmol/L (137-145)
[2018-08-24 09:24] LABS: Glucose,Whole Blood 242 mg/dL (75-99)
[2018-08-24] MEDS: NICOTINE 21MG/24HR PATCH TRANSDERM SCH (09:36)
[2018-08-24] MEDS: SENNOSIDES 8.6 MG TAB PO SCH ×2 (09:36→21:01)
[2018-08-24] MEDS: LORATADINE 10 MG TAB PO SCH (09:36)
[2018-08-24] MEDS: ENOXAPARIN 40 MG/0.4 ML SYRINGE SQ SCH (09:37)
[2018-08-24] MEDS: TOPIRAMATE 25 MG TAB PO SCH (09:38)
[2018-08-24] MEDS: SERTRALINE 100 MG TAB PO SCH (09:41)
[2018-08-24 10:22] VITALS: BMI 32.5
[2018-08-24] MEDS: NON-FORMULARY DRUG (Dextroamphetamine/Amphetamine [Adderall] 30 MG) PO SCH (10:33)
[2018-08-24 10:34] LABS: Glucose,Whole Blood 256 mg/dL (75-99)
[2018-08-24] MEDS: INSULIN REGULAR 100 UNIT in SODIUM CHLORIDE 0.9% 100 ML IV SCH ×2 (10:35→18:11)
[2018-08-24 11:01] LABS: Glucose,Whole Blood 257 mg/dL (75-99)
[2018-08-24] MEDS: FOLIC ACID 1 MG TAB PO SCH (11:01)
--- NOTE | 2018-08-24 11:25 | P.PN ---
Subjective Progress Note Date: 08/24/18 Principal diagnosis: Acute diabetic ketoacidosis This is a 38-year-old gentleman who follows with Dr. Nielsen as his primary care physician. He has a history of hypertension, gastroesophageal reflux disease, osteoarthritis, avascular necrosis with previous left hip replacement, sleep apnea not on CPAP in the outpatient setting, migraines depression, ADHD, posttraumatic stress disorder. He also has history of chronic and ongoing tobacco dependence. EMS was called to his home this morning as he was complaining of chest pain, shortness of breath and confusion. The patient had stated he had been drinking a lot of Gatorade the last few days. In the emergency room he was found to be an acute diabetic ketoacidosis with a presenting blood glucose of 1223. Sodium 119, chloride 81, bicarb less than 5, calcium 6.7, acetone positive. Creatinine 3.49 Arterial blood gases on 28% FiO2 revealed a PaO2 of 103, pCO2 less than 15, pH 7.07. He was initiated on the DKA protocol. He was seen and evaluated in the emergency room. He is currently quite drowsy but does arouse to verbal stimuli. Moving all fours. Following simple commands. He is currently on an insulin drip at 0.12 units per kilogram per hour. 0.9 normal saline at 200 ML's per hour. He is status post 3 L of fluid resuscitation. He is currently maintaining good O2 saturations in the upper 90s on 2 L/m per nasal cannula. He's been afebrile. He is tachycardic and tachypneic. Most recent labs reveal a WBC 23.5. Hemoglobin 14.7. Neutrophils 18.5. Sodium 127. Potassium 5.0. Chloride 93. Bicarb remains less than 5. Creatinine 2.58. Blood glucose 1013. Unable to calculate an anion gap. Patient was reevaluated today on 08/24/2018, patient remains on insulin drip, feeling better, he is on 5 units per hour, blood sugar is running in the 250 range. Anion gap is 11 , bicarb level is 16, patient has hyperchloremic metabolic acidosis. Patient is awake, alert, in no distress, just feeling congested for which I recommended Zyrtec-D. Denies any chest pain, no fever, no chills, no cough no wheezing, no nausea no vomiting no abdominal pain. CBC is normal with WBC count of 7.5 hemoglobin of 12.3. Renal profile is normal. Blood sugar this morning is 257. Objective - Vital Signs Vital signs: Vital Signs Temp 97.6 F 08/24/18 04:00 Pulse 128 H 08/24/18 06:00 Resp 25 H 08/24/18 06:00 BP 154/73 08/24/18 06:00 Pulse Ox 95 08/24/18 06:00 Intake & Output 08/23/18 08/24/18 08/24/18 18:59 06:59 18:59 Intake Total 1800.55 2280 100.450 Output Total 4120 2400 Balance -2319.45 -120 100.450 Weight 97.3 kg 97.3 kg Intake: IV 1800 1800 D5-0.45% NaCl with KCl 1800 1800 20Meq/l 1,000 ml @ 150 mls/hr IV .Q6H40M [facility] Rx# :[id number] Intake, IV Titration 0.55 100.450 Amount Insulin Regular 100 unit 0.55 100.450 In Sodium Chloride 0.9% 100 ml @ 0.1 UNITS/KG/HR 9.73 mls/hr IV .[id number] [facility] Rx#:[id number] Oral 480 Output: Urine 4120 2400 Other: Voiding Method Indwelling Catheter Indwelling Catheter - Exam Physical Exam: Revealed a 38-year-old white male obese, in no distress. Head: Atraumatic normocephalic. HEENT:[Neck is supple.] [No neck masses.] [No thyromegaly.] [No JVD.] Chest: [Clear throughout, no crackles, no rhonchi, no wheezes.] Cardiac Exam: [Normal S1 and S2, no S3 gallop, no murmur.] Abdomen: [Soft, nontender, no megaly, no rebound, no guarding, normal bowel sounds.] Extremities: [No clubbing, no edema, no cyanosis.] Neurological Exam: [No focal neurologic deficit.] Psychiatric: Normal mood affect and mental status examination. Skin: No rashes. - Labs CBC & Chem 7: 08/24/18 02:29 08/24/18 07:48 Labs: Abnormal Lab Results - Last 24 Hours (Table) 08/23/18 08/23/18 08/23/18 Range/Units 11:25 11:49 12:59 RBC (4.30-5.90) m/uL Hgb (13.0-17.5) gm/dL Hct (39.0-53.0) % Plt Count (150-450) k/uL Sodium (137-145) mmol/L Potassium (3.5-5.1) mmol/L Chloride (98-107) mmol/L Carbon Dioxide (22-30) mmol/L BUN (9-20) mg/dL Creatinine (0.66-1.25) mg/dL Glucose (74-99) mg/dL POC Glucose (mg/dL) 210 H 218 H 230 H (75-99) mg/dL Phosphorus (2.5-4.5) mg/dL 08/23/18 08/23/18 08/23/18 Range/Units 14:03 14:49 14:56 RBC (4.30-5.90) m/uL Hgb (13.0-17.5) gm/dL Hct (39.0-53.0) % Plt Count (150-450) k/uL Sodium (137-145) mmol/L Potassium (3.5-5.1) mmol/L Chloride 111 H (98-107) mmol/L Carbon Dioxide 14 L (22-30) mmol/L BUN (9-20) mg/dL Creatinine 0.65 L (0.66-1.25) mg/dL Glucose 241 H (74-99) mg/dL POC Glucose (mg/dL) 225 H 226 H (75-99) mg/dL Phosphorus (2.5-4.5) mg/dL 08/23/18 08/23/18 08/23/18 Range/Units 15:59 17:02 18:01 RBC (4.30-5.90) m/uL Hgb (13.0-17.5) gm/dL Hct (39.0-53.0) % Plt Count (150-450) k/uL Sodium (137-145) mmol/L Potassium (3.5-5.1) mmol/L Chloride (98-107) mmol/L Carbon Dioxide (22-30) mmol/L BUN (9-20) mg/dL Creatinine (0.66-1.25) mg/dL Glucose (74-99) mg/dL POC Glucose (mg/dL) 212 H 220 H 204 H (75-99) mg/dL Phosphorus (2.5-4.5) mg/dL 08/23/18 08/23/18 08/23/18 Range/Units 19:52 20:27 21:05 RBC (4.30-5.90) m/uL Hgb (13.0-17.5) gm/dL Hct (39.0-53.0) % Plt Count (150-450) k/uL Sodium (137-145) mmol/L Potassium (3.5-5.1) mmol/L Chloride 112 H (98-107) mmol/L Carbon Dioxide 15 L (22-30) mmol/L BUN (9-20) mg/dL Creatinine 0.60 L (0.66-1.25) mg/dL Glucose 218 H (74-99) mg/dL POC Glucose (mg/dL) 209 H 191 H (75-99) mg/dL Phosphorus (2.5-4.5) mg/dL 08/23/18 08/23/18 08/24/18 Range/Units 22:02 23:06 00:16 RBC (4.30-5.90) m/uL Hgb (13.0-17.5) gm/dL Hct (39.0-53.0) % Plt Count (150-450) k/uL Sodium (137-145) mmol/L Potassium (3.5-5.1) mmol/L Chloride (98-107) mmol/L Carbon Dioxide (22-30) mmol/L BUN (9-20) mg/dL Creatinine (0.66-1.25) mg/dL Glucose (74-99) mg/dL POC Glucose (mg/dL) 183 H 186 H 222 H (75-99) mg/dL Phosphorus (2.5-4.5) mg/dL 08/24/18 08/24/18 08/24/18 Range/Units 01:11 01:59 02:29 RBC (4.30-5.90) m/uL Hgb (13.0-17.5) gm/dL Hct (39.0-53.0) % Plt Count (150-450) k/uL Sodium 136 L (137-145) mmol/L Potassium 3.4 L (3.5-5.1) mmol/L Chloride 109 H (98-107) mmol/L Carbon Dioxide 16 L (22-30) mmol/L BUN (9-20) mg/dL Creatinine 0.62 L (0.66-1.25) mg/dL Glucose 193 H (74-99) mg/dL POC Glucose (mg/dL) 177 H 172 H (75-99) mg/dL Phosphorus 1.8 L (2.5-4.5) mg/dL 08/24/18 08/24/18 08/24/18 Range/Units 02:29 03:10 04:19 RBC 4.15 L (4.30-5.90) m/uL Hgb 12.3 L (13.0-17.5) gm/dL Hct 36.0 L (39.0-53.0) % Plt Count 131 L (150-450) k/uL Sodium (137-145) mmol/L Potassium (3.5-5.1) mmol/L Chloride (98-107) mmol/L Carbon Dioxide (22-30) mmol/L BUN (9-20) mg/dL Creatinine (0.66-1.25) mg/dL Glucose (74-99) mg/dL POC Glucose (mg/dL) 193 H 191 H (75-99) mg/dL Phosphorus (2.5-4.5) mg/dL 08/24/18 08/24/18 08/24/18 Range/Units 05:17 05:53 07:03 RBC (4.30-5.90) m/uL Hgb (13.0-17.5) gm/dL Hct (39.0-53.0) % Plt Count (150-450) k/uL Sodium (137-145) mmol/L Potassium (3.5-5.1) mmol/L Chloride (98-107) mmol/L Carbon Dioxide (22-30) mmol/L BUN (9-20) mg/dL Creatinine (0.66-1.25) mg/dL Glucose (74-99) mg/dL POC Glucose (mg/dL) 204 H 187 H 194 H (75-99) mg/dL Phosphorus (2.5-4.5) mg/dL 08/24/18 08/24/18 08/24/18 Range/Units 07:48 07:51 09:22 RBC (4.30-5.90) m/uL Hgb (13.0-17.5) gm/dL Hct (39.0-53.0) % Plt Count (150-450) k/uL Sodium 135 L (137-145) mmol/L Potassium (3.5-5.1) mmol/L Chloride 109 H (98-107) mmol/L Carbon Dioxide 15 L (22-30) mmol/L BUN 8 L (9-20) mg/dL Creatinine 0.63 L (0.66-1.25) mg/dL Glucose 271 H (74-99) mg/dL POC Glucose (mg/dL) 262 H 242 H (75-99) mg/dL Phosphorus (2.5-4.5) mg/dL 08/24/18 08/24/18 Range/Units 10:30 10:58 RBC (4.30-5.90) m/uL Hgb (13.0-17.5) gm/dL Hct (39.0-53.0) % Plt Count (150-450) k/uL Sodium (137-145) mmol/L Potassium (3.5-5.1) mmol/L Chloride (98-107) mmol/L Carbon Dioxide (22-30) mmol/L BUN (9-20) mg/dL Creatinine (0.66-1.25) mg/dL Glucose (74-99) mg/dL POC Glucose (mg/dL) 256 H 257 H (75-99) mg/dL Phosphorus (2.5-4.5) mg/dL Assessment and Plan Assessment: Impression: 1 acute diabetic ketoacidosis in new onset diabetes. 2 acute anion gap metabolic acidosis secondary to DKA. 3 electrolytes imbalance including pseudohyponatremia and hyperkalemia improving. 4 history of avascular necrosis/left hip requiring surgery. 5 obstructive sleep apnea syndrome, not compliant with CPAP. 6 ongoing tobacco dependence syndrome. 7 hypertension deficit disorder 8 history of posttraumatic stress disorder. 9. Benign essential hypertension 10 history of GERD without esophagitis Recommendation: Continue present supportive care measures, continue treatment as per the DKA protocol, no clear-cut evidence of any infection, continue insulin drip, continue fluids, monitor electrolytes on a daily basis, we will likely transfer out of the ICU tomorrow and hopefully switch to subcu insulin in the next 24 hours. We'll continue to monitor in the ICU until insulin drip is discontinued. For his nasal congestion, recommended Zyrtec-D every 24 hours. Time with Patient: Less than 30
[2018-08-24 11:59] LABS: Glucose,Whole Blood 219 mg/dL (75-99)
[2018-08-24 13:15] LABS: Glucose,Whole Blood 218 mg/dL (75-99)
[2018-08-24 13:55] LABS: Glucose,Whole Blood 209 mg/dL (75-99)
[2018-08-24 14:43] LABS: Anion Gap 9 mmol/L; Blood Urea Nitrogen 8 mg/dL (9-20); Carbon Dioxide 20 mmol/L (22-30); Chloride 108 mmol/L (98-107); Glucose 201 mg/dL (74-99); Phosphorus 2.4 mg/dL (2.5-4.5); Potassium 3.4 mmol/L (3.5-5.1); Sodium 137 mmol/L (137-145)
[2018-08-24 15:13] LABS: Glucose,Whole Blood 197 mg/dL (75-99)
--- NOTE | 2018-08-24 16:10 | PN ---
PROGRESS NOTE DATE OF SERVICE: August 24, 2018. PRESENTING COMPLAINT: Tired. INTERVAL HISTORY: Patient in the ICU, admitted with new onset diabetic ketoacidosis. Remains on insulin drip. More awake today, answering some questions, requiring about 6.5 units/minute of insulin. Sugars running about 250s. No family is present. Did tolerate a liquid diet earlier. REVIEW OF SYSTEMS: Attempted for constitutional, cardiovascular, GI, pulmonary and relevant findings as above. CURRENT MEDICATIONS: Reviewed that include insulin drip. PHYSICAL EXAMINATION: VITAL SIGNS: Temperature 98, pulse 82, respiration 21, blood pressure 136/87, pulse ox 96% on room air. GENERAL APPEARANCE: Tired-appearing lying in bed but arousable. EYES: Pupils are equal. Conjunctivae normal. NECK: JVD unable to assess. Mass not palpable. RESPIRATORY: Effort increased. LUNGS: Decreased breath sounds. CARDIOVASCULAR: 1st and 2nd sounds normal. No edema. ABDOMEN: Soft, nontender. Liver and spleen not palpable. PSYCHIATRY: Patient is able to answer simple questions. INVESTIGATIONS: Potassium 3.41, bicarb 20, BUN 8, creatinine 0.62, glucose 201. ASSESSMENT: 1. Acute diabetic ketoacidosis. New onset. Anion gap now closed. 2. Hyperkalemia secondary to ketoacidosis improved. 3. Pseudohyponatremia from hyperglycemia, improved. 4. Acute renal failure, prerenal, improved. 5. Leukocytosis from hemoconcentration, improved. 6. Acute delirium from severe metabolic encephalopathy, improving. 7. Gastroesophageal reflux disease. 8. Essential hypertension. 9. Anxiety and depression, not otherwise specified. 10.PTSD. 11.Chronic nicotine dependence. Patient is a cigarette smoker. PLAN: Starting this evening, he will be started on 30 units of Levemir, and we will also give 8 units of NovoLog with meals. Have the patient up in a chair. Patient can be moved out of the ICU. Insulin drip will be discontinued at the same time. MMODL / IJN: [id number] /
[2018-08-24 16:11] LABS: Glucose,Whole Blood 174 mg/dL (75-99)
[2018-08-24 17:20] LABS: Glucose,Whole Blood 164 mg/dL (75-99)
[2018-08-24] MEDS: INSULIN ASPART (NovoLOG) 100 UNIT/ML VIAL SQ SCH (17:27)
[2018-08-24] MEDS ORDERED: INSULIN ASPART (NovoLOG) 100 UNIT/ML VIAL SQ SCH (17:30)
[2018-08-24] MEDS ORDERED: INSULIN DETEMIR (LEVEMIR) 100 UNIT/ML SYR SQ SCH (18:00)
[2018-08-24 18:29] LABS: Glucose,Whole Blood 245 mg/dL (75-99)
[2018-08-24 20:00] LABS: Glucose,Whole Blood 170 mg/dL (75-99)
[2018-08-24] MEDS: NIACIN TR 500 MG CAPSULE.ER PO SCH (22:23)
[2018-08-24] MEDS: PRAZOSIN 1 MG CAP PO SCH (22:24)
[2018-08-25 01:53] LABS: Glucose,Whole Blood 179 mg/dL (75-99)
[2018-08-25] MEDS: D5-0.45% NACL WITH KCL 20MEQ/L 1,000 ML IV SCH (06:44)
[2018-08-25] MEDS: SODIUM CHLORIDE 0.9% 1,000 ML IV SCH (06:46)
[2018-08-25 07:02] VITALS: BP 145/77; PULSE 104; RESP 18; TEMP 98.6
[2018-08-25 07:07] LABS: Glucose,Whole Blood 169 mg/dL (75-99)
[2018-08-25 07:38] LABS: HCT 37.8 % (39.0-53.0); HGB 12.6 gm/dL (13.0-17.5); MCH 29.8 pg (25.0-35.0); MCHC 33.4 g/dL (31.0-37.0); MCV 89.2 fL (80.0-100.0); Mean Platelet Volume 7.6; Platelet Count 164 k/uL (150-450); RBC 4.24 m/uL (4.30-5.90); RDW 13.6 % (11.5-15.5); WBC 5.7 k/uL (3.8-10.6)
[2018-08-25 07:49] LABS: Anion Gap 14 mmol/L; Blood Urea Nitrogen 9 mg/dL (9-20); Calcium 9.1 mg/dL (8.4-10.2); Carbon Dioxide 15 mmol/L (22-30); Chloride 109 mmol/L (98-107); Glucose 182 mg/dL (74-99); Potassium 4.9 mmol/L (3.5-5.1); Sodium 138 mmol/L (137-145)
[2018-08-25] MEDS: NICOTINE 21MG/24HR PATCH TRANSDERM SCH (08:20)
[2018-08-25] MEDS: INSULIN ASPART (NovoLOG) 100 UNIT/ML VIAL SQ SCH ×2 (08:20→12:51)
[2018-08-25] MEDS: NON-FORMULARY DRUG (Dextroamphetamine/Amphetamine [Adderall] 30 MG) PO SCH (10:17)
[2018-08-25] MEDS: ENOXAPARIN 40 MG/0.4 ML SYRINGE SQ SCH (10:18)
[2018-08-25] MEDS: SERTRALINE 100 MG TAB PO SCH (10:18)
[2018-08-25] MEDS: LORATADINE 10 MG TAB PO SCH (10:18)
[2018-08-25] MEDS: SENNOSIDES 8.6 MG TAB PO SCH (10:18)
[2018-08-25] MEDS: FOLIC ACID 1 MG TAB PO SCH (10:19)
[2018-08-25] MEDS: TOPIRAMATE 25 MG TAB PO SCH (10:19)
[2018-08-25 12:43] LABS: Glucose,Whole Blood 153 mg/dL (75-99)
--- NOTE | 2018-08-25 13:51 | P.DS ---
Providers Date of admission: 08/22/18 12:39 Attending physician: Kyler Alvarado Consults: 08/22/18 11:47 Consult Physician Urgent Consulting Provider: Erica Samuels Consult Reason/Comments: DKA Do you want consulting provider notified?: Yes Primary care physician: Wei Garcia [facility] Course: 38-year-old pleasant gentleman admitted the for diverticulosis doses patient has new-onset evidence metastatic patient is clinically doing well be discharged on 30 units of Lantus along with 8 units of pre-meal insulin.dietary counseling was provided patient will check his blood sugars before meals and at bedtime. Patient will be provided with glucometer test strips and the insulin needles. PHYSICAL EXAMINATION: GENERAL: The patient is alert and oriented x3, not in any acute distress. Well developed, well nourished. HEENT: Pupils are round and equally reacting to light. EOMI. No scleral icterus. No conjunctival pallor. Normocephalic, atraumatic. No pharyngeal erythema. No thyromegaly. CARDIOVASCULAR: S1 and S2 present. No murmurs, rubs, or gallops. PULMONARY: Chest is clear to auscultation, no wheezing or crackles. ABDOMEN: Soft, nontender, nondistended, normoactive bowel sounds. No palpable organomegaly. MUSCULOSKELETAL: No joint swelling or deformity. EXTREMITIES: No cyanosis, clubbing, or pedal edema. NEUROLOGICAL: Gross neurological examination did not reveal any focal deficits. SKIN: No rashes. for other chronic medical problems hospitalization course please refer to dictation a progress note from Dr. Alvarado from yesterday Plan - Discharge Summary Discharge Rx Participant: Yes New Discharge Prescriptions: New Insulin Aspart [NovoLOG (formulary)] 8 unit SQ AC-TID #1 vial Insulin Glargine [Lantus] 30 unit SQ HS #1 vial Continue Cholecalciferol (Vitamin D3) [Vitamin D3] 2,000 unit PO DAILY Dextroamphetamine/Amphetamine [Adderall] 30 mg PO QAM Folic Acid 1 mg PO DAILY oxyCODONE-APAP 10-325MG [Percocet 10-325 mg] 1 tab PO Q6H PRN PRN Reason: Pain Sertraline [Zoloft] 200 mg PO QAM SUMAtriptan SUCCINATE [Imitrex] 25 mg PO DAILY PRN PRN Reason: MIGRAINES Lisinopril [Zestril] 10 mg PO QAM Sennosides [Senokot] 1 tab PO BID #60 tablet ARIPiprazole [Abilify] 10 mg PO DAILY Niacin 1,000 mg PO HS Prazosin HCl 4 mg PO HS Topiramate [Topamax] 50 mg PO DAILY Discharge Medication List Cholecalciferol (Vitamin D3) [Vitamin D3] 2,000 unit PO DAILY 11/11/17 [History] Dextroamphetamine/Amphetamine [Adderall] 30 mg PO QAM 11/11/17 [History] Folic Acid 1 mg PO DAILY 11/11/17 [History] Lisinopril [Zestril] 10 mg PO QAM 11/11/17 [History] SUMAtriptan SUCCINATE [Imitrex] 25 mg PO DAILY PRN 11/11/17 [History] Sertraline [Zoloft] 200 mg PO QAM 11/11/17 [History] oxyCODONE-APAP 10-325MG [Percocet 10-325 mg] 1 tab PO Q6H PRN 11/11/17 [History] Sennosides [Senokot] 1 tab PO BID #60 tablet 11/18/17 [Rx] ARIPiprazole [Abilify] 10 mg PO DAILY 08/22/18 [History] Niacin 1,000 mg PO HS 08/22/18 [History] Prazosin HCl 4 mg PO HS 08/22/18 [History] Topiramate [Topamax] 50 mg PO DAILY 08/22/18 [History] Insulin Aspart [NovoLOG (formulary)] 8 unit SQ AC-TID #1 vial 08/25/18 [Rx] Insulin Glargine [Lantus] 30 unit SQ HS #1 vial 08/25/18 [Rx] Follow up Appointment(s)/Referral(s): Wei Nielsen MD [Primary Care Provider] - 08/29/18 9:45 am Discharge Disposition: HOME SELF-CARE
== END 2018-08-25 15:17 | disposition home or self-care (01) | DRG 637 ==
LOC: EC 08:34 → 2SICU 12:39 → 4SSUR 08-24 19:56
PROVIDERS: ADMIT Hospitalist; ATTEND Hospitalist
DX: E11.10 Type 2 diabetes mellitus with ketoacidosis without coma (principal); G93.41 Metabolic encephalopathy; E87.1 Hypo-osmolality and hyponatremia; N17.9 Acute kidney failure, unspecified; E87.8 Other disorders of electrolyte and fluid balance, not elsewhere classified; E87.5 Hyperkalemia; E86.0 Dehydration; D72.829 Elevated white blood cell count, unspecified; F32.9 Major depressive disorder, single episode, unspecified; G43.909 Migraine, unspecified, not intractable, without status migrainosus; I10 Essential (primary) hypertension; F90.9 Attention-deficit hyperactivity disorder, unspecified type; F41.9 Anxiety disorder, unspecified; F98.8 Other specified behavioral and emotional disorders with onset usually occurring in childhood and adolescence; F43.10 Post-traumatic stress disorder, unspecified; K21.9 Gastro-esophageal reflux disease without esophagitis; M19.90 Unspecified osteoarthritis, unspecified site; M06.9 Rheumatoid arthritis, unspecified; G47.33 Obstructive sleep apnea (adult) (pediatric); F17.210 Nicotine dependence, cigarettes, uncomplicated; Z71.6 Tobacco abuse counseling; Z91.19 Patient's noncompliance with other medical treatment and regimen; Z79.899 Other long term (current) drug therapy; Z99.89 Dependence on other enabling machines and devices; Z96.611 Presence of right artificial shoulder joint; Z96.642 Presence of left artificial hip joint; Z88.5 Allergy status to narcotic agent; Z83.3 Family history of diabetes mellitus
CPT/HCPCS: 36415; 36600; 51702; 71046; 80048; 80051; 80053; 82009; 82550; 82553; 82565; 82805; 82947; 83735; 84100; 84484; 84520; 85025; 85027; 85610; 85730; 93005; 96361; 96374; 99291

== ENCOUNTER 2022-03-30 10:45 | Emergency (ER) | payer MEDICARE, OTHER ==
[2022-03-30 10:49] VITALS: BP 184/92; PULSE 72; RESP 18; TEMP 98.1
--- NOTE | 2022-03-30 11:09 | XR ---
EXAMINATION TYPE: XR knee complete RT DATE OF EXAM: 03/30/2022 COMPARISON: NONE HISTORY: 42-year-old male pain and swelling TECHNIQUE: 3 views FINDINGS: Moderate prepatellar and anterior infrapatellar soft tissue swelling. Underlying extensor mechanism a ppears intact. No knee joint effusion. No acute fracture, subluxation, dislocation seen. IMPRESSION: Prepatellar and anterior infrapatellar soft tissue swelling. Correlate for contusion, cellulitis, pre patellar bursitis, etc. No acute osseous abnormality seen.
[2022-03-30] MEDS ORDERED: CLINDAMYCIN 150 MG CAP PO STA (12:28)
[2022-03-30] MEDS ORDERED: KETOROLAC 15 MG/ML 1 ML VIAL IM STA (12:28)
--- NOTE | 2022-03-30 12:28 | ED ---
General Adult HPI - General Chief complaint: Extremity Injury, Lower Stated complaint: rt knee swelling/pain Time Seen by Provider: 03/30/22 12:10 Source: patient, RN notes reviewed, old records reviewed Mode of arrival: ambulatory Limitations: no limitations - History of Present Illness Initial comments: Patient is a 42-year-old male who presents emergency Department complaining of atraumatic right knee pain and tenderness. It is located over the anterior aspect of the right knee. Began yesterday. No known trauma. His weakness or numbness. Does endorse pain with flexion and extension of the knee. Can bear weight and walk. Is uncertain what is causing it. No history of this. Presents for further evaluation at this time. Past medical history includes hypertension, diabetes. No other acute complaints at this time. Denies any fevers, chills, nausea, vomiting, abdominal pain, chest pain, shortness breath. No coughing. No other acute complaints. Presents further evaluation. - Related Data Home Medications Medication Instructions Recorded Confirmed Cholecalciferol (Vitamin D3) 2,000 unit PO DAILY 11/11/17 08/22/18 [Vitamin D3] Dextroamphetamine/Amphetamine 30 mg PO QAM 11/11/17 08/22/18 [Adderall] Folic Acid 1 mg PO DAILY 11/11/17 08/22/18 SUMAtriptan succinate [Imitrex] 25 mg PO DAILY PRN 11/11/17 08/22/18 Sertraline [Zoloft] 200 mg PO QAM 11/11/17 08/22/18 lisinopriL [Zestril] 10 mg PO QAM 11/11/17 08/22/18 oxyCODONE-APAP 10-325MG [Percocet 1 tab PO Q6H PRN 11/11/17 08/22/18 10-325 mg] ARIPiprazole [Abilify] 10 mg PO DAILY 08/22/18 08/22/18 Niacin 1,000 mg PO HS 08/22/18 08/22/18 Prazosin HCl 4 mg PO HS 08/22/18 08/22/18 Topiramate [Topamax] 50 mg PO DAILY 08/22/18 08/22/18 Previous Rx's Medication Instructions Recorded Sennosides [Senokot] 1 tab PO BID #60 tablet 05/08/18 INSULIN ASPART (NovoLOG) [NovoLOG 8 unit SQ AC-TID #1 vial 08/25/18 (formulary)] Insulin Glargine [Lantus] 30 unit SQ HS #1 vial 08/25/18 clindamycin HCL 300 mg PO TID 14 Days #42 capsule 03/30/22 Allergies Allergy/AdvReac Type Severity Reaction Status Date / Time morphine Allergy HEADACHE, Verified 03/30/22 10:49 AGITATION Review of Systems ROS Statement: Those systems with pertinent positive or pertinent negative responses have been documented in the HPI. Review of Systems: CONST: Denies fever EYES: Denies blurry vision ENT: Denies nasal congestion C/V: Denies Chest pain RESP: Denies shortness of breath GI: Denies abdominal pain : Denies dysuria SKIN: Denies rash. MSK: Endorses right knee pain NEURO: Denies headache ROS Other: All systems not noted in ROS Statement are negative. Past Medical History Past Medical History: GERD/Reflux, Hypertension, Osteoarthritis (OA), Rheumatoid Arthritis (RA), Sleep Apnea/CPAP/BIPAP Additional Past Medical History / Comment(s): AVASCULAR NECROSIS. MIGRAINES. ALLERGIES. DOES NOT USE CPAP. History of Any Multi-Drug Resistant Organisms: None Reported Past Surgical History: Back Surgery, Joint Replacement, Orthopedic Surgery Additional Past Surgical History / Comment(s): RIGHT ROTATOR CUFF REPAIR. TOTAL JOINT RIGHT SHOULDER @ [facility], [facility]. LEFT KNEE ARTHROSCOPY. SINUS. C6-7, ANTERIOR TOTAL LEFT HIP ARTHROPLASTY, Past Anesthesia/Blood Transfusion Reactions: No Reported Reaction Past Psychological History: ADD/ADHD, Anxiety, Depression, PTSD Past Alcohol Use History: Rare Past Drug Use History: None Reported - Past Family History Mother Family Medical History: No Reported History General Exam - General Exam Comments Initial Comments: General: Appears in no acute distress. HEAD: Normal with no signs of head trauma. EYES: EOMI ENT: Hearing grossly intact RESPIRATORY: No respiratory distress C/V: Pulses 2+ intact throughout. ABD: Nondistended EXT: Normal range of motion. No obvious deformity. Patient does have swelling located over the anterior aspect of the right patella. Tenderness on palpation. Appears to be affecting bursa. SKIN: Mild erythema over the anterior aspect of the right patella. NEURO: Alert and oriented 4. Limitations: no limitations Course Vital Signs 03/30/22 10:46 Temperature 98.1 F Pulse Rate 72 Respiratory 18 Rate Blood Pressure 184/92 O2 Sat by Pulse 97 Oximetry Medical Decision Making - Medical Decision Making Based on the patient's presentation and physical exam, I'm concerned for possible traumatic injury the patient's right knee. Likely a bursitis. Since be isolated to the anterior aspect over the patella. The remainder the knee exam is unremarkable. X-ray was obtained prior to me evaluating the patient, did show prepatellar and infrapatellar bursitis. I evaluated the patient at this time. Vital signs are within normal limits. I discussed results with him. He is uncertain if he can follow-up with his physician, and therefore I will provide him with a prescription for antibiotics empirically in the case that this is infectious bursitis. I have low suspicion at this time. We discussed oral NSAIDs, as well as rest, warm compresses to treat it. He was in agreement this plan. We'll attempt follow-up with his PCP next week. Strict return precautions were discussed as well. Patient was in agreement this plan. Vital signs within normal limits. I will provide the patient with a prescription for clindamycin. I instructed the patient to follow up with their PCP in the next 1-3 days. I explained that the patient should return to the emergency department if they experience any worsening symptoms. Strict return precautions were discussed with the patient. The patient expressed understanding of these instructions. I answered all questions that the patient had. The patient was discharged home in good condition with their prescriptions and follow up information. Disposition Clinical Impression: Bursitis Disposition: HOME SELF-CARE Condition: Fair Instructions (If sedation given, give patient instructions): Knee Bursitis (ED) Prescriptions: clindamycin HCL 300 mg PO TID 14 Days #42 capsule Is patient prescribed a controlled substance at d/c from ED?: No Referrals: [facility],Clinic [Primary Care Provider] - 1-2 days Time of Disposition: 12:25
[2022-03-30] MEDS ORDERED: dexAMETHasone 2 MG TAB PO STA (12:29)
== END 2022-03-30 12:40 | disposition home or self-care (01) ==
LOC: EC 10:45
DX: M71.9 Bursopathy, unspecified (principal); I10 Essential (primary) hypertension; E11.9 Type 2 diabetes mellitus without complications; K21.9 Gastro-esophageal reflux disease without esophagitis; M19.90 Unspecified osteoarthritis, unspecified site; F41.9 Anxiety disorder, unspecified; F32.A Depression, unspecified; Z79.2 Long term (current) use of antibiotics; Z79.01 Long term (current) use of anticoagulants; Z79.899 Other long term (current) drug therapy; Z88.6 Allergy status to analgesic agent
CPT/HCPCS: 99283 ×2; 96372; 73562; J8540; J1885

== ENCOUNTER 2023-02-16 09:29 | Observation (INO) | payer MEDICARE, OTHER ==
[2023-02-16 09:35] LABS: Glucose,Whole Blood 138 mg/dL (70-110)
[2023-02-16] MEDS ORDERED: SODIUM CHLORIDE 0.9% 1,000 ML IV ONE (09:37)
[2023-02-16 09:50] LABS: Basophils # (A) 0.1 k/uL (0-0.2); Basophils % (A) 1 %; Eosinophils # (A) 0.1 k/uL (0-0.7); Eosinophils % (A) 2 %; HCT 41.5 % (39.0-53.0); HGB 14.3 gm/dL (13.0-17.5); Lymphocytes # (A) 2.5 k/uL (1.0-4.8); Lymphocytes % (A) 39 %; MCH 30.8 pg (25.0-35.0); MCHC 34.3 g/dL (31.0-37.0); MCV 89.8 fL (80.0-100.0); Mean Platelet Volume 8.3; Monocytes # (A) 0.4 k/uL (0-1.0); Monocytes % (A) 7 %; Neutrophils # (A) 3.1 k/uL (1.3-7.7); Neutrophils % (A) 49 %; Platelet Count 145 k/uL (150-450); RBC 4.62 m/uL (4.30-5.90); RDW 12.8 % (11.5-15.5); WBC 6.4 k/uL (3.8-10.6)
--- NOTE | 2023-02-16 09:55 | XR ---
EXAMINATION TYPE: XR chest 2V DATE OF EXAM: 02/16/2023 COMPARISON: 08/22/2018 INDICATION: Syncope TECHNIQUE: Frontal and lateral views of the chest are obtained. FINDINGS: The heart size is normal. The pulmonary vasculature is normal. The lungs are clear. Right shoulder prosthesis is present IMPRESSION: 1. No acute pulmonary process.
[2023-02-16 10:20] LABS: ALT 26 U/L (4-49); AST 23 U/L (17-59); African American GFR (CKD) >90 (>60 ml/min/1.73 sqM); Albumin 3.7 g/dL (3.5-5.0); Alkaline Phosphatase 44 U/L (38-126); Anion Gap 9 mmol/L; Blood Urea Nitrogen 13 mg/dL (9-20); Calcium 8.7 mg/dL (8.4-10.2); Carbon Dioxide 21 mmol/L (22-30); Chloride 109 mmol/L (98-107); Glucose 144 mg/dL (74-99); Non-African American GFR(CKD) >90 (>60 ml/min/1.73 sqM); Potassium 4.2 mmol/L (3.5-5.1); Sodium 139 mmol/L (137-145); Total Bilirubin 0.6 mg/dL (0.2-1.3); Total Protein 6.2 g/dL (6.3-8.2)
[2023-02-16] MEDS ORDERED: NALOXONE 0.4 MG/ML 1 ML VIAL IV PRN (11:18)
[2023-02-16] MEDS: SODIUM CHLORIDE 0.9% 1,000 ML IV SCH (11:24)
--- NOTE | 2023-02-16 11:25 | ED ---
General Adult HPI - General Chief complaint: Syncope Stated complaint: syncope Time Seen by Provider: 02/16/23 09:34 Source: EMS Mode of arrival: EMS Limitations: no limitations - History of Present Illness Initial comments: This is a 43-year-old male with a past medical history including hypertension, diabetes, not on any medications as well as anxiety and depression presents emergency department via EMS for a syncopal episode. The patient stated that he started Remeron yesterday and he woke up this morning and he went downstairs to go smoke a cigarette when he had a syncopal episode. The patient did state that it was witnessed from somebody else in the building and he was noted to "turn white." The patient stated that he felt hot and flushed before this syncopal episode and stated that he has never passed out before. The patient denied any current symptoms on my evaluation but stated that he has been eating and drinking appropriately. The patient denied any other acute pain or complaints. - Related Data Home Medications Medication Instructions Recorded Confirmed Cholecalciferol (Vitamin D3) 2,000 unit PO DAILY 11/11/17 08/22/18 [Vitamin D3] Dextroamphetamine/Amphetamine 30 mg PO QAM 11/11/17 08/22/18 [Adderall] Folic Acid 1 mg PO DAILY 11/11/17 08/22/18 SUMAtriptan succinate [Imitrex] 25 mg PO DAILY PRN 11/11/17 08/22/18 Sertraline [Zoloft] 200 mg PO QAM 11/11/17 08/22/18 lisinopriL [Zestril] 10 mg PO QAM 11/11/17 08/22/18 oxyCODONE-APAP 10-325MG [Percocet 1 tab PO Q6H PRN 11/11/17 08/22/18 10-325 mg] ARIPiprazole [Abilify] 10 mg PO DAILY 08/22/18 08/22/18 Niacin 1,000 mg PO HS 08/22/18 08/22/18 Prazosin HCl 4 mg PO HS 08/22/18 08/22/18 Topiramate [Topamax] 50 mg PO DAILY 08/22/18 08/22/18 Previous Rx's Medication Instructions Recorded Sennosides [Senokot] 1 tab PO BID #60 tablet 11/18/17 INSULIN ASPART (NovoLOG) [NovoLOG 8 unit SQ AC-TID #1 vial 08/25/18 (formulary)] Insulin Glargine [Lantus] 30 unit SQ HS #1 vial 08/25/18 clindamycin HCL 300 mg PO TID 14 Days #42 capsule 03/30/22 Allergies Allergy/AdvReac Type Severity Reaction Status Date / Time morphine Allergy HEADACHE, Verified 02/16/23 09:32 AGITATION Review of Systems ROS Statement: Those systems with pertinent positive or pertinent negative responses have been documented in the HPI. ROS Other: All systems not noted in ROS Statement are negative. Past Medical History Past Medical History: GERD/Reflux, Hypertension, Osteoarthritis (OA), Rheumatoid Arthritis (RA), Sleep Apnea/CPAP/BIPAP Additional Past Medical History / Comment(s): AVASCULAR NECROSIS. MIGRAINES. ALLERGIES. DOES NOT USE CPAP. History of Any Multi-Drug Resistant Organisms: None Reported Past Surgical History: Back Surgery, Joint Replacement, Orthopedic Surgery Additional Past Surgical History / Comment(s): RIGHT ROTATOR CUFF REPAIR. TOTAL JOINT RIGHT SHOULDER @ [facility], [facility]. LEFT KNEE ARTHROSCOPY. SINUS. C6-7, ANTERIOR TOTAL LEFT HIP ARTHROPLASTY, Past Anesthesia/Blood Transfusion Reactions: No Reported Reaction Past Psychological History: ADD/ADHD, Anxiety, Depression, PTSD Smoking Status: Current every day smoker Past Alcohol Use History: Rare Past Drug Use History: None Reported - Past Family History Mother Family Medical History: No Reported History General Exam Limitations: no limitations General appearance: alert, in no apparent distress Head exam: Present: atraumatic, normocephalic, normal inspection Eye exam: Present: normal appearance, PERRL Pupils: Present: normal accommodation ENT exam: Present: normal exam, normal oropharynx, mucous membranes moist Neck exam: Present: normal inspection, full ROM Respiratory exam: Present: normal lung sounds bilaterally Cardiovascular Exam: Present: normal rhythm, bradycardia GI/Abdominal exam: Present: soft, normal bowel sounds Extremities exam: Present: normal inspection, full ROM Back exam: Present: normal inspection, full ROM Neurological exam: Present: alert, oriented X3, CN II-XII intact Psychiatric exam: Present: normal affect, normal mood Skin exam: Present: warm, dry Course Vital Signs 02/16/23 02/16/23 09:29 11:00 Temperature 98.6 F Pulse Rate 53 L 58 L Respiratory 18 20 Rate Blood Pressure 133/73 156/74 O2 Sat by Pulse 96 100 Oximetry EKG Findings - EKG Comments: EKG Findings:: An EKG was obtained and was interpreted by myself showing a rate of 47, DC interval 142, QR orthodox 1:30 and QTC of 414. This EKG showed a sinus bradycardia with no ST segment elevation or depression noted. Medical Decision Making - Medical Decision Making Was pt. sent in by a medical professional or institution (, [facility], [facility], urgent care, hospital, or long-term...) When possible be specific @ -No Did you speak to anyone other than the patient for history (EMS, parent, family, police, friend...)? What history was obtained from this source @ -No Did you review nursing and triage notes (agree or disagree)? Why? @ -I reviewed and agree with nursing and triage notes Were old charts reviewed (outside hosp., previous admission, EMS record, old EKG, old radiological studies, urgent care reports/EKG's, long-term records)? Report findings @ -No old charts were reviewed Differential Diagnosis (chest pain, altered mental status, abdominal pain women, abdominal pain men, vaginal bleeding, weakness, fever, dyspnea, syncope, headache, dizziness, GI bleed, back pain, seizure, CVA, palpatations, mental health)? @ -Vasovagal syncope, symptomatic bradycardia, dehydration EKG interpreted by me (3pts min.). @ -As above X-rays interpreted by me (1pt min.). @ -Chest x-ray was obtained and was interpreted by myself showing no acute process. CT interpreted by me (1pt min.). @ -None done U/S interpreted by me (1pt. min.). @ -None done What testing was considered but not performed or refused? (CT, X-rays, U/S, labs)? Why? @ -None What meds were considered but not given or refused? Why? @ -None Did you discuss the management of the patient with other professionals (professionals i.e. [facility], [facility], lab, RT, psych nurse, psychiatric social worker supervisor, personal injury legal assistant, teacher, air crew officer, gearcase assembler)? Give summary @ -Yes, admitting physician was contacted regarding patient observation Was smoking cessation discussed for >3mins.? @ -No Was critical care preformed (if so, how long)? @ -No Were there social determinants of health that impacted care today? How? (Homelessness, low income, unemployed, alcoholism, drug addiction, transportation, low edu. Level, literacy, decrease access to med. care, care home, rehab)? @ -No Was there de-escalation of care discussed even if they declined (Discuss DNR or withdrawal of care, Hospice)? DNR status @ -No What co-morbidities impacted this encounter? (DM, HTN, Smoking, COPD, CAD, Cancer, CVA, ARF, Chemo, Hep., AIDS, mental health diagnosis, sleep apnea, morbid obesity)? @ -Hypertension, diabetes not on medications, anxiety and depression Was patient admitted / discharged? Hospital course, mention meds given and route, prescriptions, significant lab abnormalities, going to OR and other pertinent info. @ -That the patient was seen and evaluated in emergency department. Physical exam, the patient was resting in bed without any acute distress. Vital signs admission were stable however the patient was bradycardic. All laboratory workup was within normal limits and the patient likely had a vasovagal syncopal episode. When the patient was ambulated around the emergency department, the patient did not complain of any further symptoms however the patient's heart rate continued to decrease into the low 40 range. Due to the patient's p ersistent bradycardia in the setting of syncopal episode, the patient would benefit from an observation stay to be seen and evaluated by cardiology. The patient was agreeable to this as he was concerned about his heart rate. The patient was placed in observation in stable condition. Undiagnosed new problem with uncertain prognosis? @ -No Drug Therapy requiring intensive monitoring for toxicity (Heparin, Nitro, Insulin, Cardizem)? @ -No Were any procedures done? @ -No Diagnosis/symptom? @ -Syncope, persistent bradycardia Acute, or Chronic, or Acute on Chronic? @ -Acute Uncomplicated (without systemic symptoms) or Complicated (systemic symptoms)? @ -Complicated Side effects of treatment? @ -No Exacerbation, Progression, or Severe Exacerbation? @ -No Poses a threat to life or bodily function? How? (Chest pain, [place], [place], pneumonia, PE, COPD, DKA, ARF, appy, cholecystitis, CVA, Diverticulitis, Homicidal, Suicidal, threat to staff... and all critical care pts) @ -Yes, continued persistent bradycardia in the setting of syncope can lead to further episodes and possible damage and possible . - Lab Data Result diagrams: 02/16/23 09:37 02/16/23 09:37 Lab Results 02/16/23 02/16/23 02/16/23 Range/Units 09:33 09:37 09:37 WBC 6.4 (3.8-10.6) k/uL RBC 4.62 (4.30-5.90) m/uL Hgb 14.3 (13.0-17.5) gm/dL Hct 41.5 (39.0-53.0) % MCV 89.8 (80.0-100.0) fL MCH 30.8 (25.0-35.0) pg MCHC 34.3 (31.0-37.0) g/dL RDW 12.8 (11.5-15.5) % Plt Count 145 L (150-450) k/uL MPV 8.3 Neutrophils % 49 % Lymphocytes % 39 % Monocytes % 7 % Eosinophils % 2 % Basophils % 1 % Neutrophils # 3.1 (1.3-7.7) k/uL Lymphocytes # 2.5 (1.0-4.8) k/uL Monocytes # 0.4 (0-1.0) k/uL Eosinophils # 0.1 (0-0.7) k/uL Basophils # 0.1 (0-0.2) k/uL Sodium 139 (137-145) mmol/L Potassium 4.2 (3.5-5.1) mmol/L Chloride 109 H (98-107) mmol/L Carbon Dioxide 21 L (22-30) mmol/L Anion Gap 9 mmol/L BUN 13 (9-20) mg/dL Creatinine 0.90 (0.66-1.25) mg/dL Est GFR (CKD-EPI)AfAm >90 (>60 ml/min/1.73 sqM) Est GFR (CKD-EPI)NonAf >90 (>60 ml/min/1.73 sqM) Glucose 144 H (74-99) mg/dL POC Glucose (mg/dL) 138 H (70-110) mg/dL POC Glu Canal [employer] Tender Chief Operator ID Kasia Ruiz Calcium 8.7 (8.4-10.2) mg/dL Magnesium 2.0 (1.6-2.3) mg/dL Total Bilirubin 0.6 (0.2-1.3) mg/dL AST 23 (17-59) U/L ALT 26 (4-49) U/L Alkaline Phosphatase 44 (38-126) U/L Troponin I (0.000-0.034) ng/mL Total Protein 6.2 L (6.3-8.2) g/dL Albumin 3.7 (3.5-5.0) g/dL 02/16/23 Range/Units 09:37 WBC (3.8-10.6) k/uL RBC (4.30-5.90) m/uL Hgb (13.0-17.5) gm/dL Hct (39.0-53.0) % MCV (80.0-100.0) fL MCH (25.0-35.0) pg MCHC (31.0-37.0) g/dL RDW (11.5-15.5) % Plt Count (150-450) k/uL MPV Neutrophils % % Lymphocytes % % Monocytes % % Eosinophils % % Basophils % % Neutrophils # (1.3-7.7) k/uL Lymphocytes # (1.0-4.8) k/uL Monocytes # (0-1.0) k/uL Eosinophils # (0-0.7) k/uL Basophils # (0-0.2) k/uL Sodium (137-145) mmol/L Potassium (3.5-5.1) mmol/L Chloride (98-107) mmol/L Carbon Dioxide (22-30) mmol/L Anion Gap mmol/L BUN (9-20) mg/dL Creatinine (0.66-1.25) mg/dL Est GFR (CKD-EPI)AfAm (>60 ml/min/1.73 sqM) Est GFR (CKD-EPI)NonAf (>60 ml/min/1.73 sqM) Glucose (74-99) mg/dL POC Glucose (mg/dL) (70-110) mg/dL POC Glu [employer] Tender Chief Operator ID Calcium (8.4-10.2) mg/dL Magnesium (1.6-2.3) mg/dL Total Bilirubin (0.2-1.3) mg/dL AST (17-59) U/L ALT (4-49) U/L Alkaline Phosphatase (38-126) U/L Troponin I <0.012 (0.000-0.034) ng/mL Total Protein (6.3-8.2) g/dL Albumin (3.5-5.0) g/dL Disposition Clinical Impression: Syncope, Bradycardia Disposition: ADMITTED IP TO THIS [facility] Condition: Stable Is patient prescribed a controlled substance at d/c from ED?: No Referrals: [facility],Clinic [Primary Care Provider] - 1-2 days Time of Disposition: 10:30 Decision to Admit Reason: Admit from EC Decision Date: 02/16/23 Decision Time: 10:30
[2023-02-16] MEDS: NICOTINE 21MG/24HR PATCH TRANSDERM SCH (12:33)
[2023-02-16] MEDS ORDERED: ACETAMINOPHEN TAB 325 MG TAB PO PRN (14:08)
[2023-02-16] MEDS ORDERED: MELATONIN 3 MG TABLET PO PRN (14:08)
[2023-02-16] MEDS ORDERED: ONDANSETRON 4 MG/2 ML VIAL IVP PRN (14:08)
[2023-02-16] MEDS ORDERED: bisacodyL 5 MG TABLET.DR PO PRN (14:08)
[2023-02-16] MEDS ORDERED: LISINOPRIL-HCTZ 20-25 MG 1 EACH TAB PO PRN (14:21)
--- NOTE | 2023-02-16 14:28 | P.HPIM ---
History of Present Illness H&P Date: 02/16/23 Patient is a 43-year-old male with history of hypertension, ZENIA without CPAP use, GERD, arthritis, and avascular necrosis who presented to the hospital after a syncopal episode. In the ER he underwent extensive evaluation. Initial vital signs were remarkable for a pulse of 53. Initial laboratory analysis was remarkable for platelets of 145, chloride 109, glucose 144, and total protein is 6.2. Initial EKGs showed sinus bradycardia rate of 47. When he went to ambulate the patient and his heart rate was dropping from the high 50s to the low 40s. He was asymptomatic at that time but arrangements were made for admission. Patient seen and examined at bedside. He reports that he awoke this morning and felt fine. He walked to stay years and felt a slight rash and had a syncopal episode. He denies any loss of bowel, bladder, tongue biting, or shaking activity. He denies a prior history of syncope. He was started on mirtazapine and his first dose last night. He denies any history of significant coronary artery disease. He denies any family history of coronary artery disease or early sudden cardiac . He denies any recent cough, cold, fever, flu. Currently he is chest pain free without shortness of breath, lightheadedness, dizziness, numbness, tingling, or nausea. Vital signs reviewed General: nontoxic, no distress, appears at stated age Derm: warm, dry Eyes: EOMI, no lid lag, anicteric sclera, pupils equal round reactive to light ENT: Nose and ears atraumatic, no thrush, no pharyngeal erythema Cardiovascular: S1S2 reg, no murmur, positive posterior tibial pulse bilateral, no edema, capillary refill less than 2 seconds Lungs: clear to auscultation bilateral, no rhonchi, no rales, no wheeze, no accessory muscle use Abdominal: soft, nontender to palpation, no guarding, no appreciable organomegaly, normal bowel sounds Ext: no gross muscle atrophy, no contractures Neuro: CN II-XII grossly intact, No focal neuro deficits Psych: Alert, oriented, appropriate affect Assessment/Plan: Syncope HTN - check orthostatic vital signs - Tele - Cardio Consulted and plan is for stress test in AM - Check UDS and TSH - resume Lisinopril- HCTZ - Hold Remeron - Check Depakote level Thrombocytopenia - appears chronic back to 2019 - outpatient follow-up. Nicotine dependency - cessation - Nicotine replacement Insomnia - hold remeron Depression/PTSD - Resume Lexapro 10 mg daily - resume Depakote thousand milligrams at night -resume Abilify 10 mg daily Imaging: Chest x-ray-no acute pulmonary process Data Review: EKG is reviewed by myself reveals heart rate of 47, IA 142, QRS 1:30, QTC 414, normal axis Laboratory and vitals review as above The patient is admitted with an anticipated less than 2 midnight stay for ev aluation of Syncope. Surrogate decision-maker: SCDs DVT prophylaxis: SCDs Discussed with: Patient, ED clinician Anticipated discharge date: in AM Anticipated discharge place: Home This dictation was prepared using [employer] voice recognition software. Though every attempt is made to correct errors during dictation some may still exist. Past Medical History Past Medical History: GERD/Reflux, Hypertension, Osteoarthritis (OA), Rheumatoid Arthritis (RA), Sleep Apnea/CPAP/BIPAP Additional Past Medical History / Comment(s): AVASCULAR NECROSIS. MIGRAINES. ALLERGIES. DOES NOT USE CPAP. History of Any Multi-Drug Resistant Organisms: None Reported Past Surgical History: Back Surgery, Joint Replacement, Orthopedic Surgery Additional Past Surgical History / Comment(s): RIGHT ROTATOR CUFF REPAIR. TOTAL JOINT RIGHT SHOULDER @ [facility], [facility]. LEFT KNEE ARTHROSCOPY. SINUS. C6-7, ANTERIOR TOTAL LEFT HIP ARTHROPLASTY, Past Anesthesia/Blood Transfusion Reactions: No Reported Reaction Past Psychological History: ADD/ADHD, Anxiety, Depression, PTSD Smoking Status: Current every day smoker Past Alcohol Use History: Rare Past Drug Use History: None Reported - Past Family History Mother Family Medical History: No Reported History Medications and Allergies Home Medications Medication Instructions Recorded Confirmed Type ARIPiprazole [Abilify] 10 mg PO DAILY 02/16/23 02/16/23 History Divalproex ER [Depakote ER] 1,000 mg PO HS 02/16/23 02/16/23 History Escitalopram [Lexapro] 10 mg PO DAILY 02/16/23 02/16/23 History Lisinopril-Hctz 20-25 mg 1 tab PO DAILY PRN 02/16/23 02/16/23 History [Zestoretic 20-25] Mirtazapine 15 mg PO HS 02/16/23 02/16/23 History Allergies Allergy/AdvReac Type Severity Reaction Status Date / Time morphine Allergy HEADACHE, Verified 02/16/23 12:36 AGITATION Physical Exam Osteopathic Statement: *. No significant issues noted on an osteopathic structural exam other than those noted in the History and Physical/Consult. Vitals: Vital Signs Temp Pulse Resp BP Pulse Ox 02/16/23 12:34 97.9 F 53 L 16 148/61 97 02/16/23 11:00 58 L 20 156/74 100 02/16/23 09:29 98.6 F 53 L 18 133/73 96 Intake and Output 02/15/23 02/16/23 02/16/23 22:59 06:59 14:59 Other: Weight 99.337 kg Results CBC & Chem 7: 02/16/23 09:37 02/16/23 09:37 Labs: Abnormal Lab Results - Last 24 Hours (Table) 02/16/23 02/16/23 02/16/23 Range/Units 09:33 09:37 09:37 Plt Count 145 L (150-450) k/uL Chloride 109 H (98-107) mmol/L Carbon Dioxide 21 L (22-30) mmol/L Glucose 144 H (74-99) mg/dL POC Glucose (mg/dL) 138 H (70-110) mg/dL Total Protein 6.2 L (6.3-8.2) g/dL
--- NOTE | 2023-02-16 15:23 | CONS ---
CONSULTATION CHIEF COMPLAINT: Syncope. HISTORY OF PRESENT ILLNESS: This is a 43-year-old gentleman with history of hypertension and diabetes along with anxiety, depression, history of drug abuse, who is currently had an episode of syncope for which he came to the hospital where he is admitted. He states he went downstairs to have a smoke and as he was returning, he became dizzy and then had transient loss of consciousness. He denies any chest pain, difficulty in breathing, edema, PND, or orthopnea. His EKG shows sinus bradycardia but is otherwise within normal limits. The first set of troponin is negative. Hemoglobin is normal. Creatinine is normal. There is no prior history of coronary artery disease or congestive heart failure. MEDICATIONS: Include Lexapro, Depakote, and Abilify. PAST MEDICAL HISTORY: Significant for drug abuse, hypertension, dyslipidemia. FAMILY HISTORY: Negative for premature coronary artery disease. SOCIAL HISTORY: Significant for smoking. There is no history of EtOH abuse, but is significant for drug abuse, last used in December. PHYSICAL EXAMINATION: GENERAL: Comfortable at rest. VITAL SIGNS: Stable. NECK: There is no jugular venous distention. Carotid upstroke is normal. There is no bruit. CHEST: Reveals good air entry bilaterally. HEART: Reveals first and second heart sounds. No gallop. No murmur. No rub. ABDOMEN: Soft, nontender. EXTREMITIES: Exam of extremities did not reveal any edema. Peripheral pulses are felt. DAIRY TECHNOLOGIST: Did not reveal focal neurological deficits and there are no orthostatic changes. ASSESSMENT: Syncope, rule out cardiac causes. PLAN: We will watch him on telemetry, obtain another set of troponin and check a D-dimer. Obtain a 2D echo tomorrow morning. If workup is negative, we will undergo a stress test and if that looks normal, he will be discharged home. MMODL / IJN: [id number] /
[2023-02-16 17:51] LABS: Amphetamine Screen,Urine Not Detected (NotDetected); Barbiturate Screen,Urine Not Detected (NotDetected); Benzodiazepines Screen,Urine Not Detected (NotDetected); Cocaine Screen,Urine Not Detected (NotDetected); Methadone Screen, Urine Not Detected (NotDetected); Opiate Screen,Urine Not Detected (NotDetected); Oxycodone Screen, Urine Not Detected (NotDetected); Phencyclidine Screen,Urine Not Detected (NotDetected); Tricyclic Antidepressant,Urine Not Detected (NotDetected); Urn Cannabinoid Scrn Not Detected (NotDetected)
[2023-02-16 17:54] LABS: Valproic Acid (Depakene) 45.1 ug/mL
[2023-02-16] MEDS ORDERED: DIVALPROEX ER 500 MG TAB.ER.24H PO SCH (21:00)
[2023-02-17] MEDS: SODIUM CHLORIDE 0.9% 1,000 ML IV SCH (00:31)
[2023-02-17 07:10] LABS: African American GFR (CKD) >90 (>60 ml/min/1.73 sqM); Anion Gap 8 mmol/L; Blood Urea Nitrogen 14 mg/dL (9-20); Calcium 8.8 mg/dL (8.4-10.2); Carbon Dioxide 21 mmol/L (22-30); Chloride 111 mmol/L (98-107); Glucose 107 mg/dL (74-99); Non-African American GFR(CKD) >90 (>60 ml/min/1.73 sqM); Potassium 4.5 mmol/L (3.5-5.1); Sodium 140 mmol/L (137-145)
[2023-02-17 07:45] VITALS: RESP 16; TEMP 97.4
[2023-02-17 08:39] VITALS: BP 168/80; PULSE 51
[2023-02-17] MEDS: NICOTINE 21MG/24HR PATCH TRANSDERM SCH (08:52)
[2023-02-17] MEDS ORDERED: ESCITALOPRAM 10 MG TAB PO SCH (09:00)
[2023-02-17] MEDS ORDERED: ARIPiprazole 10 MG TAB PO SCH (09:00)
[2023-02-17] MEDS ORDERED: lisinopriL 10 MG TAB PO SCH (09:00)
--- NOTE | 2023-02-17 10:38 | P.PN ---
Subjective Progress Note Date: 02/17/23 History of present illness: This is a 43-year-old male with past medical history of hypertension, diabetes, anxiety, depression, history of drug abuse. Patient presented to hospital due to episode of syncope. No chest pain or difficulty breathing. Apparently in the emergency center, patient was ambulated and his heart rate went into the 30s. He is scheduled for stress echocardiogram and echocardiogram today. Reviewed telemetry strips and patient's lowest heart rate was 47. Physical examination: Gen: This is a 43-year-old male. He appears to be in no acute distress VS: reviewed HEENT: Head is atraumatic, normocephalic. Pupils equal, round. Sclerae is anicteric. LUNGS: Clear to auscultation. No wheezes or rhonchi. No intercostal retractions. HEART: Regular rate and rhythm. No murmur. EXTREMITIES: No pedal edema. No calf tenderness. NEUROLOGICAL: Patient is awake, alert and oriented x3. Assessment: Syncope, rule out cardiac causes Plan: No arrhythmia on telemetry and orthostatic vital signs been negative. Patient is scheduled for stress echocardiogram and 2-D echocardiogram today. If stress test is within normal limits, patient is cleared for discharge home and may follow-up in the office in one to 2 weeks. Nurse practitioner note has been reviewed, I agree with documented findings and plan of care. Patient was seen and examined. Objective - Vital Signs Vital signs: Vital Signs Temp 97.4 F L 02/17/23 07:00 Pulse 51 L 02/17/23 08:30 Resp 16 02/17/23 08:30 BP 168/80 02/17/23 08:30 Pulse Ox 98 02/17/23 08:30 FiO2 Intake & Output 02/16/23 02/17/23 02/17/23 18:59 06:59 18:59 Intake Total 230 Balance 230 Weight 99.337 kg Intake: Oral 230 Other: Voiding Method Toilet Toilet # Voids 1 - Labs CBC & Chem 7: 02/16/23 09:37 02/17/23 06:25 Labs: Abnormal Lab Results - Last 24 Hours (Table) 02/17/23 Range/Units 06:25 Chloride 111 H (98-107) mmol/L Carbon Dioxide 21 L (22-30) mmol/L Glucose 107 H (74-99) mg/dL
--- NOTE | 2023-02-17 10:52 | CA ---
Transthoracic Echo Report Name: Rei Pearson Age: 43 Gender: M : 1980 Exam Date: 02/17/2023 10:14 Exam Location: [place] Ht (in): 67 Wt (lb): 219 Ordering Physician: Ralph Capps MD ([id number]) Attending/Referring Phys: Jefry ESCOBAR Genetics Teacher Sloane Avila RDCS Procedure CPT: Indications: Bradycardia Cardiac Hx: Technical Quality: Good Contrast 1: Total Dose (mL): Contrast 2: Total Dose (mL): MEASUREMENTS (Male / Female) Normal Values 2D ECHO LV Diastolic Diameter PLAX 5.6 cm 4.2 - 5.9 / 3.9 - 5.3 cm LV Systolic Diameter PLAX 3.0 cm IVS Diastolic Thickness 1.2 cm 0.6 - 1.0 / 0.6 - 0.9 cm LVPW Diastolic Thickness 1.3 cm 0.6 - 1.0 / 0.6 - 0.9 cm LV Relative Wall Thickness 0.4 RV Internal Dim ED PLAX 3.4 cm LA Systolic Diameter LX 3.7 cm 3.0 - 4.0 / 2.7 - 3.8 cm LV Diastolic Volume MOD 4C 114.8 cm??? LV Systolic Volume MOD 4C 55.9 cm??? LV Ejection Fraction MOD 4C 51.3 % LV Cardiac Index MOD 4C 1869.3 cm???/min???m??? LV Diastolic Length 4C 9.3 cm LV Systolic Length 4C 7.5 cm LV Diastolic Volume MOD 2C 87.6 cm??? LV Systolic Volume MOD 2C 42.1 cm??? LV Ejection Fraction MOD 2C 51.9 % LV Cardiac Index MOD 2C 1444.3 cm???/min???m??? LV Diastolic Length 2C 9.5 cm LV Systolic Length 2C 7.5 cm LA Volume 56.2 cm??? 18 - 58 / 22 - 52 cm??? M-MODE Aortic Root Diameter MM 3.0 cm MV E Point Septal Separation 0.5 cm AV Cusp Separation MM 1.9 cm DOPPLER AV Peak Velocity 160.3 cm/s AV Peak Gradient 10.3 mmHg MV Area PHT 4.1 cm??? Mitral E Point Velocity 72.6 cm/s Mitral A Point Velocity 77.7 cm/s Mitral E to A Ratio 0.9 MV Deceleration Time 183.5 ms MV E' Velocity 7.9 cm/s Mitral E to MV E' Ratio 9.2 FINDINGS Left Ventricle Left ventricular ejection fraction is estimated at 60-65 %. Left ventricular cavity size normal. Mildly increased septal wall thickness. Right Ventricle Mild right ventricular dilatation. Unable to estimate the right ventricular systolic pressure. Right Atrium Normal right atrial size. Left Atrium Normal left atrial size. Mitral Valve Structurally normal mitral valve. No mitral stenosis, regurgitation or prolapse. Aortic Valve Trileaflet aortic valve. No aortic valve stenosis or regurgitation. Tricuspid Valve Structurally normal tricuspid valve. No tricuspid stenosis, regurgitation or prolapse. Pulmonic Valve Structurally normal pulmonic valve. No pulmonic regurgitation. Pericardium Normal pericardium. No echocardiographic findings to suggest a hemodynamically significant pericardial effusion. Aorta Normal size aortic root and proximal ascending aorta. CONCLUSIONS Normal LV size and systolic function. No significant abnormality on the Doppler exam. No pericardial effusion. No pulmonary hypertension Previewed by: Dr. Mansi Steve MD (Electronically Signed) Final Date: 17 February 2023 10:50
--- NOTE | 2023-02-17 11:53 | CA ---
Stress Echo Report Rei Pearson Age: 43 Gender: M : 1980 Exam Date: 02/17/2023 09:48 Exam Location: [facility] Ht (in): 67 Wt (lb): 219 Ordering Physician: Ralph Capps MD ([id number]) Referring Physician: Jefry ESCOBAR [employer] Publisher: Sloane Avila RDCS Technologist Procedure CPT: Indication: ambulatory bradycardia ICD-9 Codes: Rhythm: Patient History: Cardiac Medications: Medications in past 24 hours: Contrast: Stress Results Protocol: Abiel Total dose(mL): Exercise Duration (min:sec): Max ST Depression (mm): Angina Score: Feliciano Score: METS: Resting HR: 83 Resting BP: 138 / 51 Peak HR: 130 Peak BP: 244 / 63 Max Predicted HR: 175 74 % Max Predicted HR Target HR: 149 Double Product: [id number] Stress Summary: BP Response: Reason for Termination: SOB Cardiac Symptoms: ECG Analysis Resting ECG: Stress ECG: Arrhythmia: Echo Analysis Resting Echo: Peak Echo Analysis: MEASUREMENTS (Male/Female) Normal Values CONCLUSIONS This patient was advised to have a stress echo. However following the stress test the EKG images were unavailable. There is only one tracing which revealed sinus tachycardia at 115 bpm. According to the data available heart rate went up to 130 bpm which was still suboptimal for 85% of predicted maximal. However there is no evidence of stress-induced ischemia. The stress echo images revealed good augmentation of the front wall motion wall thickening of all segments suggesting that there is no ischemia at a heart rate of nearly 130 bpm. I have advised to have a regular stress test done as an outpatient Dr. Mansi Steve MD (Electronically Signed) Final Date: 17 February 2023 11:52
--- NOTE | 2023-02-17 13:20 | P.DS ---
Providers Date of admission: 02/16/23 11:19 Expected date of discharge: 02/17/23 Attending physician: Amari Harmon MD Consults: 02/16/23 11:18 Consult Physician Routine Consulting Provider: [facility] Consult Reason/Comments: Persistent bradycardia, syncope Do you want consulting provider notified?: Yes, Notify in am Primary care physician: [facility] Hospital Course: Discharge Diagnosis: Syncope HTN Thrombocytopenia Nicotine dependency Insomnia Depression/PTSD Hospital Course: Patient is a 43-year-old male with history of hypertension, ZENIA without CPAP use, GERD, arthritis, and avascular necrosis who presented to the hospital after a syncopal episode. In the ER he underwent extensive evaluation. Initial vital signs were remarkable for a pulse of 53. Initial laboratory analysis was remarkable for platelets of 145, chloride 109, glucose 144, and total protein is 6.2. Initial EKGs showed sinus bradycardia rate of 47. When he went to ambulate the patient and his heart rate was dropping from the high 50s to the low 40s. He was asymptomatic at that time but arrangements were made for admission. He was seen by cardiology. His TSH was normal, valproic acid was 45. He underwent an echocardiogram which showed normal left ventricular size and systolic function with pulmonary hypertension. CT eyes have a stress echo, however this stress test EKG images were unavailable. Echocardiogram images revealed good augmentation of the front motion wall thickening in all segments suggesting that there is no ischemia however the patient was advised to have repeat stress test completed as an outpatient. He was determined stable for discharge. Follow-[facility]: [facility] in 1-2 days, Dr. Oviedo in 2 weeks, patient was given a prescription by cardiology for outpatient stress test. Patient seen and examined at bedside. He is doing well. He had no recurrent syncopal events. He believes his syncope was from remeron. He wants to be discharged home. Vital signs reviewed and stable. General: nontoxic, no distress, appears at stated age Cardiovascular: S1S2 reg, no murmur, positive posterior tibial pulse bilateral, Lungs: CTA bilateral, no rhonchi, no rales , no accessory muscle use Abdominal: soft, nontender to palpation, no guarding, no appreciable organomegaly Ext: no gross muscle atrophy, no edema b/l lower extremities, no contractures Neuro: CN II-XI grossly intact, no focal neuro deficits Psych: Alert, oriented, appropriate affect A total of 25 minutes of time were spent preparing this complex discharge summary. Patient was discharged on 02/17/23. This dictation was prepared using [employer] voice recognition software. Though every attempt is made to correct errors during dictation some may still exist. Patient Condition at Discharge: Stable Plan - Discharge Summary New Discharge Prescriptions: Continue ARIPiprazole [Abilify] 10 mg PO DAILY Escitalopram [Lexapro] 10 mg PO DAILY Divalproex ER [Depakote ER] 1,000 mg PO HS Lisinopril-Hctz 20-25 mg [Zestoretic 20-25] 1 tab PO DAILY PRN PRN Reason: HIGH BLOOD PRESSURE Discontinued Mirtazapine 15 mg PO HS Discharge Medication List ARIPiprazole [Abilify] 10 mg PO DAILY 02/16/23 [History] Divalproex ER [Depakote ER] 1,000 mg PO HS 02/16/23 [History] Escitalopram [Lexapro] 10 mg PO DAILY 02/16/23 [History] Lisinopril-Hctz 20-25 mg [Zestoretic 20-25] 1 tab PO DAILY PRN 02/16/23 [History] Follow up Appointment(s)/Referral(s): Mansi Steve MD [STAFF PHYSICIAN] - 2 Weeks [facility]Clinic [Primary Care Provider] - 1-2 days Activity/Diet/Wound Care/Special Instructions: Activity: As tolerated Diet: Heart Healthy Special Instructions: Please scheduled outpatient stress test Discharge Disposition: HOME SELF-CARE
== END 2023-02-17 14:00 | disposition home or self-care (01) ==
LOC: EC 09:29 → 6NMEDSUR 11:19
PROVIDERS: ADMIT Family Medicine; ATTEND Family Medicine
DX: R55 Syncope and collapse (principal); I10 Essential (primary) hypertension; R00.1 Bradycardia, unspecified; D69.6 Thrombocytopenia, unspecified; E86.0 Dehydration; E11.9 Type 2 diabetes mellitus without complications; M06.9 Rheumatoid arthritis, unspecified; G47.33 Obstructive sleep apnea (adult) (pediatric); K21.9 Gastro-esophageal reflux disease without esophagitis; M19.90 Unspecified osteoarthritis, unspecified site; G43.909 Migraine, unspecified, not intractable, without status migrainosus; E78.5 Hyperlipidemia, unspecified; G47.00 Insomnia, unspecified; M87.9 Osteonecrosis, unspecified; F17.210 Nicotine dependence, cigarettes, uncomplicated; F32.A Depression, unspecified; F43.10 Post-traumatic stress disorder, unspecified; F90.9 Attention-deficit hyperactivity disorder, unspecified type; F41.9 Anxiety disorder, unspecified; Z79.4 Long term (current) use of insulin; Z79.899 Other long term (current) drug therapy; Z88.5 Allergy status to narcotic agent; Z96.611 Presence of right artificial shoulder joint; Z96.652 Presence of left artificial knee joint; Z87.898 Personal history of other specified conditions; Z71.6 Tobacco abuse counseling
CPT/HCPCS: 96361 ×2; 96360; 99285; 36415; 93005; 93306; 93351; 85379; 80164; 80053; 80048; 84443; 83735; 84484; 85025; 80306; 71046; G0378 ×2; S4990 ×2

== ENCOUNTER → 2024-09-24 | Outpatient (CLI) | payer MEDICARE, OTHER ==
--- NOTE | 2024-09-24 14:18 | MR ---
EXAMINATION TYPE: MR lumbar spine wo con DATE OF EXAM: 09/24/2024 COMPARISON: MRI lumbar spine 2017 HISTORY: low back pain that radiates down left leg TECHNIQUE: Multiplanar, multisequence imaging of the lumbar spine is performed without IV contrast. FINDINGS: Sagittal images of the lumbar spine show vertebral body heights and alignment to appear sta ble and satisfactory. The intervertebral discs redemonstrate normal heights and hydration. The conus medullaris remains normal in position and signal ending mid L1 level. The bone marrow signal intens ity is within normal limits. Axial images show mild facet arthropathy L3-L4 through the L5-S1 levels. No significant new large dis c herniation is present. Bilateral neural foramina remain patent at all lumbar levels. Paraspinal mus nataliia bulk is preserved. IMPRESSION: No suspicious new prominent disc herniation to account for patient's left-sided radiculop athy type symptoms. [facility], , 09/24/2024 2:15 PM
== END | disposition home or self-care (01) ==
LOC: RADMRIMAIN 13:21
PROVIDERS: ATTEND Physical Medicine & Rehabilitation
DX: M48.062 Spinal stenosis, lumbar region with neurogenic claudication (principal); M47.816 Spondylosis without myelopathy or radiculopathy, lumbar region
CPT/HCPCS: 72148